=== PATIENT | female | born 1945 | race Caucasian/White ===

== ENCOUNTER 2018-10-28 21:39 | Inpatient (IN) | payer MEDICARE ==
[2018-10-28] MEDS ORDERED: Heparin 25,000 units/D5W 500 ML ONE (21:47)
[2018-10-28] MEDS ORDERED: Heparin 1,000 UNITS/ML VIAL ONE (21:47)
[2018-10-28 21:56] LABS: #Eosinphils 0.2 thou/uL (0.0-0.7); #Lymphocytes 2.3 thou/uL (1.20-3.40); #Monocytes 0.8 thou/uL (0.11-0.59); #Neutrophils 5.9 thou/uL (1.40-6.50); %Basophils 0.3 % (0.0-1.0); %Eosinophils 2.4 % (0.0-10.0); %Monocytes 8.3 % (0.0-10.0); Hemoglobin 13.6 g/dL (12.0-16.0); Mean Corpuscular HGB CONC 32.3 g/dL (32.0-36.0); Mean Corpuscular Hemoglobin 27.4 pg (27.0-31.0); Mean Corpuscular Volume 84.8 fL (78.0-98.0); Mean Platelet Volume 9.2 fL (7.4-10.4); Platelet Count 168 thou/uL (130-400); RBC Distribution Width 12.1 % (11.5-14.5); Red Blood Cell (RBC) Count 4.96 mill/uL (4.20-5.40); White Blood Cell (WBC) Count 9.2 thou/uL (4.8-10.8)
--- NOTE | 2018-10-28 21:59 | RAD ---
Portable frontal chest radiograph: 10/28/2018 COMPARISON: 02/10/2018 HISTORY: STEMI FINDINGS: Extensive fusion hardware again noted at the thoracolumbar junction. Mild interstitial prom inence and pulmonary hyperinflation. Stable heart and mediastinal contours. No focal consolidation or alveolar edema. Pression: No acute findings.
[2018-10-28] MEDS ORDERED: Midazolam HCl 2 mg/2 ml Vial ONE (22:10)
[2018-10-28 22:18] LABS: ALT (SGPT) 13 U/L (8-55); AST (SGOT) 23 U/L (5-34); Albumin 4.5 g/dL (3.4-4.8); Alkaline Phosphatase 84 U/L (40-150); Anion Gap 14 mmol/L (10-20); BUN (Urea Nitrogen) 18 mg/dL (9.8-20.1); Bilirubin, Total 0.4 mg/dL (0.2-1.2); Calc. Creatinine Clearance 0 mL/min (70-130); Calcium 10.1 mg/dL (7.8-10.44); Carbon Dioxide 22 mmol/L (23-31); Chloride 105 mmol/L (98-107); Estimated GFR-MDRD 55; Globulin 3.3 g/dL (2.4-3.5); Glucose 135 mg/dL (83-110); Potassium 4.2 mmol/L (3.5-5.1); Protein, Total 7.8 g/dL (6.0-8.3); Sodium 137 mmol/L (136-145)
[2018-10-28] MEDS ORDERED: Heparin 10,000 UNITS/1 ML VIAL ONE (22:19)
[2018-10-28] MEDS ORDERED: Heparin 10,000 UNITS/ 10 ML VIAL ONE (22:22)
[2018-10-28] MEDS ORDERED: Atropine Sulfate 1 mg/10 ml Syringe ONE (22:25)
[2018-10-28 22:48] LABS: CKMB 5.4 ng/mL (0-6.6)
[2018-10-28] MEDS ORDERED: Aggrastat 12.5 MG/250 ML 0 ML ONE (22:53)
[2018-10-28] MEDS ORDERED: Aggrastat 12.5 MG/250 ML 12.5 MG in Premix Bag 1 BAG IVPB SCH (23:54)
[2018-10-28] MEDS ORDERED: Morphine 4 MG/ML VIAL SLOW IVP PRN (23:54)
[2018-10-28] MEDS ORDERED: Nitroglycerin 0.4 MG TAB (25 Tab Bottle) SL PRN (23:54)
[2018-10-28] MEDS ORDERED: Morphine 2 MG/ML SYRINGE SLOW IVP PRN (23:57)
[2018-10-29] MEDS: Sodium Chloride 0.9% 1,000 ML IV SCH ×3 (00:08→17:39)
[2018-10-29 01:10] VITALS: BMI 32.2
--- NOTE | 2018-10-29 02:43 | HP ---
INDICATION FOR ADMISSION: A 73-year-old female who started experiencing chest pain, seen around 7:10 and has suffered an acute inferior myocardial infarction. HISTORY OF PRESENT ILLNESS: This very pleasant 73-year-old female who has had no previous cardiac history, but does have a history of lupus, started developing chest pain around 7:10 this evening. She thought she had some hunger. She ate some, but the pain did not get better, it continued to increase and she was brought to the emergency room. EKG shows acute inferior myocardial infarction. She continues to have chest pain 6-08/17. PAST MEDICAL HISTORY: Significant for lupus and she has had some pneumonia. She has had 3 back surgeries. She has had a hysterectomy. She has had recent eye surgery due to glaucoma. ALLERGIES: NONE. PRESENT MEDICATIONS: She only remembers that she is taking metoprolol. The remainder of the medicine will be brought by the later. In the emergency room, she was given heparin 4000 units and 2 aspirin. REVIEW OF SYSTEMS: She wears glasses. She has had dark stools recently, but her hemoglobin is stable. She has urinary tract infections. Otherwise, 12-point review of systems unremarkable. PHYSICAL EXAMINATION: GENERAL: Reveals a well-developed, well-nourished female, in no acute distress. VITAL SIGNS: Blood pressure 133/84, heart rate is 76. She is still uncomfortable. Respiratory rate is about 18. HEENT: Shows the head to be normocephalic and atraumatic. NECK: Carotid pulses are present. No bruits present. CHEST: Clear to auscultation. CARDIOVASCULAR: Reveals a regular rate and rhythm. She has normal S1, S2. I could not hear any significant murmurs, heaves, thrills, bruits, or rubs. ABDOMEN: Obesity. Positive bowel sounds are present. No organomegaly or masses noted. EXTREMITIES: Pulses are present. Extremities showed no clubbing, cyanosis, edema. NEUROLOGIC: She appears to be stable. IMAGING: EKG shows acute inferior myocardial infarction with ST-segment elevation with reciprocal changes in the anterior and lateral leads. DIAGNOSTIC DATA: Acute inferior myocardial infarction. The patient was taken to cardiac catholic priest emergently. I have explained the procedure and the risks to her to include bleeding, infection, possible myocardial infarction, CVA, renal insufficiency, allergic contrast reaction or the possibility of . She understands agrees to proceed. We will plan for cardiac catheterization on emergent basis. She understands and agrees. For her other medical problems, we will ask that the hospital service be involved in her care for her lupus as well as for glaucoma and occasional urinary tract infections. Job ID: [id number]
[2018-10-29 04:24] LABS: #Lymphocytes 1.6 thou/uL (1.20-3.40); #Monocytes 0.4 thou/uL (0.11-0.59); #Neutrophils 3.3 thou/uL (1.40-6.50); %Basophils 0.6 % (0.0-1.0); %Eosinophils 0.5 % (0.0-10.0); %Lymphocytes 30.5 % (21.0-51.0); %Monocytes 7.5 % (0.0-10.0); Hemoglobin 12.1 g/dL (12.0-16.0); Mean Corpuscular HGB CONC 32.7 g/dL (32.0-36.0); Mean Corpuscular Hemoglobin 28.3 pg (27.0-31.0); Mean Corpuscular Volume 86.4 fL (78.0-98.0); Platelet Count 105 thou/uL (130-400); Platelet Morphology Comment Appears Decreased; RBC Distribution Width 12.1 % (11.5-14.5); Red Blood Cell (RBC) Count 4.27 mill/uL (4.20-5.40); White Blood Cell (WBC) Count 5.4 thou/uL (4.8-10.8)
[2018-10-29 04:26] LABS: ALT (SGPT) 27 U/L (8-55); AST (SGOT) 142 U/L (5-34); Albumin 3.7 g/dL (3.4-4.8); Alkaline Phosphatase 67 U/L (40-150); Anion Gap 11 mmol/L (10-20); BUN (Urea Nitrogen) 14 mg/dL (9.8-20.1); Bilirubin, Total 0.5 mg/dL (0.2-1.2); Calc. Creatinine Clearance 100 mL/min (70-130); Calcium 9.3 mg/dL (7.8-10.44); Carbon Dioxide 20 mmol/L (23-31); Chloride 109 mmol/L (98-107); Estimated GFR-MDRD 79; Globulin 2.8 g/dL (2.4-3.5); Glucose 127 mg/dL (83-110); Protein, Total 6.5 g/dL (6.0-8.3); Sodium 136 mmol/L (136-145)
[2018-10-29] MEDS: TICAGRELOR 90 MG TABLET PO SCH ×2 (09:55→21:25)
[2018-10-29] MEDS: Aspirin Chewable 81 MG TAB PO SCH (09:55)
[2018-10-29] MEDS: Carvedilol 3.125 MG TAB PO SCH ×2 (09:55→21:25)
[2018-10-29] MEDS: Lisinopril 2.5 MG TAB PO SCH (09:55)
--- NOTE | 2018-10-29 10:01 | CON ---
DATE OF CONSULTATION: HISTORY OF PRESENT ILLNESS: Brenad Reynolds is a 73-year-old female, who normally seeks care at [facility], presented to the hospital with chest pain, heaviness, lasting about an hour with the left upper extremity radiation. Apparently, she took aspirin. She is a nonsmoker. Denies any previous history of coronary artery disease. She was taken to the mill laborer by Dr. Jimmy Yun. Two cardiac stents have been inserted. Please review her notes. The patient has never smoked, has had multiple episodes of pneumonia. She has a Ventolin inhaler, which she uses from time to time. 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 MEDICATIONS: 1. Glucophage 500. 2. Atarax. 3. Eyedrops. 4. Ditropan XL. 5. Gabapentin 600. 6. Cymbalta. PAST SURGICAL HISTORY: Back surgery, hysterectomy, eye surgery. SOCIAL HISTORY: Worked in the [employer]. REVIEW OF SYSTEMS: Otherwise 10-point negative. PHYSICAL EXAMINATION: VITAL SIGNS: Blood pressure 139/78, pulse 70, respirations 18, saturations 96%. CHEST: Decreased breath sounds without any wheezing, but has anterior rhonchi. CARDIAC: Normal S1 and S2. ABDOMEN: Negative mass. LABORATORY DATA: Electrolytes are normal. White count unremarkable. Troponin is elevated. IMAGING STUDIES: Chest x-ray is normal. IMPRESSION: 1. Acute coronary syndrome, status post emergency cardiac cath with multiple stents inserted. 2. Frequent bronchitis. PLAN: 1. Continue cardiac care. Added some Dulera to her present treatment. She may have some reactive airway disease. 2. Pulmonary will follow in the ICU . Consultation note, 70 minutes, 50% direct patient care. Job ID: [id number]
[2018-10-29] MEDS ORDERED: Dextrose 50% Abboject 50 ML SYRINGE SLOW IVP PRN (12:51)
[2018-10-29] MEDS ORDERED: Insulin Regular 300 UNITS/3 ML VIAL SC PRN ×2 (12:51)
[2018-10-29] MEDS ORDERED: Dextrose 5% in Water 1,000 ML IV PRN (12:51)
--- NOTE | 2018-10-29 17:03 | PDOC.HOSPP ---
- Subjective Encounter Date: 10/29/18 Encounter Time: 17:01 Subjective: Patient seen and examined for med mngt. No CP. Follows Dr Pearlta at [facility]. No new complaints. - Objective Vital Signs & Weight: Vital Signs (12 hours) Temp Pulse BP Pulse Ox 10/29/18 16:00 98.2 F 10/29/18 09:55 74 129/66 10/29/18 08:00 97.9 F 100 Weight Weight 205 lb 14.588 oz Most Recent Monitor Data Heart Rate from ECG 91 NIBP 157/75 NIBP BP-Mean 102 Respiration from ECG 26 SpO2 100 I&O: 10/28/18 10/29/18 10/30/18 06:59 06:59 06:59 Intake Total 877 600 Output Total 1100 Balance 877 -500 Result Diagrams: 10/29/18 03:42 10/29/18 03:42 Additional Labs: Accuchecks 10/29/18 16:16 POC Glucose 89 EKG Reviewed by me: Yes (Tele SR) Hospitalist ROS - Review of Systems Respiratory: denies: cough, dry, shortness of breath, hemoptysis, SOB with excertion, pleuritic pain, sputum, wheezing, other Cardiovascular: denies: chest pain, palpitations, orthopnea, paroxysmal noc. dyspnea, edema, light headedness, other - Medication Medications: Active Medications Generic Name Dose Route Start Last Admin Trade Name Freq PRN Reason Stop Dose Admin Aspirin 81 mg 10/29/18 09:00 10/29/18 09:55 Aspirin Chewable PO 81 mg DAILY SYED Administration Carvedilol 3.125 mg 10/29/18 09:00 10/29/18 09:55 Coreg PO 3.125 mg BID SYED Administration Sodium Chloride 1,000 mls @ 100 mls/hr 10/28/18 23:54 10/29/18 09:58 Normal Saline 0.9% IV 1,000 mls .Q10H SYED Administration Tirofiban/Sodium Chloride 12.5 250 mls @ 0 mls/hr 10/28/18 23:54 10/29/18 10: 10 mg/ Device IVPB 250 mls INF SYED Administration As Directed Lisinopril 2.5 mg 10/29/18 09:00 10/29/18 09:55 Zestril PO 2.5 mg DAILY SYED Administration Morphine Sulfate 2 mg 10/28/18 23:57 10/29/18 08:14 Morphine SLOW IVP 2 mg Q4H PRN Administration CHEST PAIN (4-6) Sodium Chloride 10 ml 10/29/18 09:00 10/29/18 09:56 Flush - Normal Saline IVF 10 ml Q12HR SYED Administration Ticagrelor 90 mg 10/29/18 09:00 10/29/18 09:55 Brilinta PO 90 mg BID SYED Administration - Exam General Appearance: NAD Heart: RRR, no rubs Respiratory: CTAB, no rales Gastrointestinal: soft, non-tender, normal bowel sounds Extremities: no edema Hosp A/P (1) DM2 (diabetes mellitus, type 2) Status: Chronic Qualifiers: Chronic kidney disease stage: stage 2 (mild) (2) HTN (hypertension) Code(s): I10 - ESSENTIAL (PRIMARY) HYPERTENSION Status: Chronic (3) HLD (hyperlipidemia) Code(s): E78.5 - HYPERLIPIDEMIA, UNSPECIFIED Status: Chronic (4) Obesity (BMI 30.0-34.9) Code(s): E66.9 - OBESITY, UNSPECIFIED Status: Chronic (5) Thrombocytopenia Code(s): D69.6 - THROMBOCYTOPENIA, UNSPECIFIED Status: Acute (6) SLE (systemic lupus erythematosus related syndrome) Code(s): M32.9 - SYSTEMIC LUPUS ERYTHEMATOSUS, UNSPECIFIED Status: Chronic - Plan plan discussed w/ family Hold Metformin Start mild sliding scale Resume Cymbalta/Gabapentin Cont Macrobid for UTI suppression Full code. DPOA - family
[2018-10-29 19:27] LABS: Critical Call Chem Troponin I RESULT DECREASING
[2018-10-29 19:46] LABS: CKMB 74.4 ng/mL (0-6.6); Critical Call CKMB RESULT DECREASING
[2018-10-29] MEDS: DULoxetine 60 MG CAP PO SCH (21:25)
[2018-10-29] MEDS: Gabapentin 300 MG CAP PO SCH (21:25)
[2018-10-29] MEDS: Atorvastatin Calcium 20 MG TAB PO SCH (21:25)
[2018-10-29] MEDS: Mometasone/Formoterol 120 PUFF INHALER INH SCH (21:27)
[2018-10-30 05:12] LABS: #Eosinphils 0.2 thou/uL (0.0-0.7); #Lymphocytes 1.5 thou/uL (1.20-3.40); #Monocytes 0.6 thou/uL (0.11-0.59); #Neutrophils 2.8 thou/uL (1.40-6.50); %Basophils 0.3 % (0.0-1.0); %Eosinophils 3.7 % (0.0-10.0); %Lymphocytes 29.8 % (21.0-51.0); %Monocytes 12.2 % (0.0-10.0); %Neutrophils 53.9 % (42.0-75.0); Hemoglobin 12.5 g/dL (12.0-16.0); Mean Corpuscular HGB CONC 32.3 g/dL (32.0-36.0); Mean Corpuscular Hemoglobin 27.9 pg (27.0-31.0); Mean Corpuscular Volume 86.6 fL (78.0-98.0); Platelet Count 102 thou/uL (130-400); RBC Distribution Width 12.1 % (11.5-14.5); Red Blood Cell (RBC) Count 4.47 mill/uL (4.20-5.40); White Blood Cell (WBC) Count 5.1 thou/uL (4.8-10.8)
[2018-10-30 05:34] LABS: Albumin 3.7 g/dL (3.4-4.8); Anion Gap 12 mmol/L (10-20); BUN (Urea Nitrogen) 7 mg/dL (9.8-20.1); BUN/Creatinine Ratio 10.14; Calc. Creatinine Clearance 105 mL/min (70-130); Calcium 9.2 mg/dL (7.8-10.44); Carbon Dioxide 24 mmol/L (23-31); Chloride 111 mmol/L (98-107); Estimated GFR-MDRD 83; Glucose 112 mg/dL (83-110); Magnesium 1.8 mg/dL (1.6-2.6); Phosphorus 3.3 mg/dL (2.3-4.7); Potassium 4.2 mmol/L (3.5-5.1); Sodium 143 mmol/L (136-145)
[2018-10-30 05:38] LABS: Critical Call Chem Troponin I RESULT DECREASING; Troponin I 20.559 ng/mL (< 0.028)
[2018-10-30] MEDS: Mometasone/Formoterol 120 PUFF INHALER INH SCH ×2 (07:45→18:38)
[2018-10-30] MEDS ORDERED: Magnesium Sulfate 2 GM in Sodium Chloride 0.9% 100 ML IVPB SCH (08:45)
[2018-10-30] MEDS ORDERED: Magnesium 2 GM/50 ML 2 GM in Premix Bag 1 BAG IVPB SCH (09:15)
[2018-10-30] MEDS: Sodium Chloride 0.9% 1,000 ML IV SCH ×3 (09:21→21:21)
[2018-10-30] MEDS: Oxybutynin ER 5 MG TAB PO SCH (09:23)
[2018-10-30] MEDS: Nitrofurantoin Monohyd/M-Cryst 100 MG CAP PO SCH (09:23)
[2018-10-30] MEDS: TICAGRELOR 90 MG TABLET PO SCH ×2 (09:24→20:50)
[2018-10-30] MEDS: DULoxetine 60 MG CAP PO SCH ×2 (09:24→20:49)
[2018-10-30] MEDS: Gabapentin 300 MG CAP PO SCH ×2 (09:25→20:50)
[2018-10-30] MEDS: Lisinopril 2.5 MG TAB PO SCH (09:25)
[2018-10-30] MEDS: Aspirin Chewable 81 MG TAB PO SCH (09:26)
[2018-10-30] MEDS: Carvedilol 3.125 MG TAB PO SCH (09:26)
[2018-10-30] MEDS ORDERED: Polyethylene Glycol 3350 17 GM Packet PO SCH (10:30)
--- NOTE | 2018-10-30 10:50 | PRG ---
DATE OF SERVICE: 10/30/2018 SUBJECTIVE: This morning, she is awake, alert, and responsive. Denies any pain or shortness of breath. OBJECTIVE: VITAL SIGNS: Blood pressure 140/72, pulse 80, respiratory rate 18, saturations are 96%. CHEST: No wheezing, crackles. CARDIAC: Normal S1, S2. No gallops. ABDOMEN: No masses. LABORATORY DATA: Lytes are normal. White count is normal. Troponin is elevated. IMPRESSION: 1. Diabetes. 2. Acute coronary syndrome, status post catheterization with multiple stents. 3. Frequent bronchitis. PLAN: Continue present supportive care. Valerie. Pulmonary will follow while in the ICU. Job ID: [id number]
[2018-10-30] MEDS ORDERED: Carvedilol 3.125 MG TAB PO SCH (11:00)
--- NOTE | 2018-10-30 16:45 | PDOC.HOSPP ---
- Subjective Encounter Date: 10/30/18 Encounter Time: 09:00 Subjective: Patient seen and examined for med mngt. No CP or SOB. No new complaints. No overnight events - Objective Vital Signs & Weight: Vital Signs (12 hours) Temp Pulse Pulse Pulse Resp BP BP 10/30/18 16:00 97.6 F 10/30/18 12:00 97.7 F 10/30/18 11:24 89 101 H 145/72 H 10/30/18 09:25 99 145/72 H 10/30/18 08:00 98.1 F 10/30/18 07:45 99 22 H BP Pulse Ox Pulse Ox Pulse Ox 10/30/18 16:00 100 10/30/18 12:00 10/30/18 11:24 156/85 H 100 100 10/30/18 09:25 10/30/18 08:00 98 10/30/18 07:45 95 Weight Weight 207 lb 10.807 oz Most Recent Monitor Data Heart Rate from ECG 67 NIBP 130/76 NIBP BP-Mean 94 Respiration from ECG 33 SpO2 100 I&O: 10/29/18 10/30/18 10/31/18 06:59 06:59 06:59 Intake Total 877 2837 740 Output Total 3350 501 Balance 877 -513 239 Result Diagrams: 10/30/18 05:00 10/30/18 05:00 Additional Labs: Accuchecks 10/30/18 10/29/18 11:31 21:19 POC Glucose 100 121 H EKG Reviewed by me: Yes (Tele SR) Hospitalist ROS - Review of Systems Respiratory: denies: cough, dry, shortness of breath, hemoptysis, SOB with excertion, pleuritic pain, sputum, wheezing, other Cardiovascular: denies: chest pain, palpitations, orthopnea, paroxysmal noc. dyspnea, edema, light headedness, other Gastrointestinal: reports: constipation. denies: nausea, vomiting, abdominal pain, diarrhea, melena, hematochezia, other - Medication Medications: Active Medications Generic Name Dose Route Start Last Admin Trade Name Freq PRN Reason Stop Dose Admin Aspirin 81 mg 10/29/18 09:00 10/30/18 09:26 Aspirin Chewable PO 81 mg DAILY SYED Administration Atorvastatin Calcium 20 mg 10/29/18 21:00 10/29/18 21:25 Lipitor PO 20 mg HS SYED Administration Duloxetine HCl 60 mg 10/29/18 21:00 10/30/18 09:24 Cymbalta PO 60 mg BID SYED Administration Gabapentin 600 mg 10/29/18 21:00 10/30/18 09:25 Neurontin PO 600 mg BID SYED Administration Sodium Chloride 1,000 mls @ 100 mls/hr 10/28/18 23:54 10/30/18 09:21 Normal Saline 0.9% IV Not Given .Q10H SYED Tirofiban/Sodium Chloride 12.5 250 mls @ 0 mls/hr 10/28/18 23:54 10/29/18 10: 10 mg/ Device IVPB 250 mls INF SYED Administration As Directed Lisinopril 2.5 mg 10/29/18 09:00 10/30/18 09:25 Zestril PO 2.5 mg DAILY SYED Administration Mometasone Furoate/Formoterol Fumar 2 puff 10/29/18 18:30 10/30/18 07:45 Dulera 200 Mcg/5 Mcg Inhaler INH 2 puff BID-RT SYED Administration Morphine Sulfate 2 mg 10/28/18 23:57 10/29/18 08:14 Morphine SLOW IVP 2 mg Q4H PRN Administration CHEST PAIN (4-6) Nitrofurantoin Macrocrystals 100 mg 10/30/18 09:00 10/30/18 09:23 Macrobid PO 100 mg DAILY SYED Administration Oxybutynin Chloride 10 mg 10/30/18 09:00 10/30/18 09:23 Ditropan Xl PO 10 mg DAILY SYED Administration Sodium Chloride 10 ml 10/29/18 09:00 10/30/18 09:24 Flush - Normal Saline IVF 10 ml Q12HR SYED Administration Ticagrelor 90 mg 10/29/18 09:00 10/30/18 09:24 Brilinta PO 90 mg BID SYED Administration - Exam General Appearance: NAD Heart: RRR, no rubs Respiratory: CTAB, no rales, no ronchi Gastrointestinal: soft, non-tender, normal bowel sounds Extremities: no edema Hosp A/P (1) DM2 (diabetes mellitus, type 2) Status: Chronic Qualifiers: Chronic kidney disease stage: stage 2 (mild) (2) HTN (hypertension) Code(s): I10 - ESSENTIAL (PRIMARY) HYPERTENSION Status: Chronic (3) HLD (hyperlipidemia) Code(s): E78.5 - HYPERLIPIDEMIA, UNSPECIFIED Status: Chronic (4) Obesity (BMI 30.0-34.9) Code(s): E66.9 - OBESITY, UNSPECIFIED Status: Chronic (5) Thrombocytopenia Code(s): D69.6 - THROMBOCYTOPENIA, UNSPECIFIED Status: Acute (6) SLE (systemic lupus erythematosus related syndrome) Code(s): M32.9 - SYSTEMIC LUPUS ERYTHEMATOSUS, UNSPECIFIED Status: Chronic - Plan DVT proph w/SCDs Metformin on hold Cont sliding scale Cont ASA/BB/StatinsCymbalta/Gabapentin Cont Macrobid for chronic UTI suppression
[2018-10-30] MEDS ORDERED: diphenhydrAMINE 25 MG CAP PO PRN (18:52)
[2018-10-30] MEDS: Senokot S 8.6-50 MG TAB PO SCH (20:50)
[2018-10-30] MEDS: Carvedilol 6.25 MG TAB PO SCH (20:50)
[2018-10-30] MEDS: Atorvastatin Calcium 20 MG TAB PO SCH (20:50)
[2018-10-31] MEDS: Mometasone/Formoterol 120 PUFF INHALER INH SCH ×2 (06:42→18:19)
[2018-10-31] MEDS: DULoxetine 60 MG CAP PO SCH ×2 (08:18→20:22)
[2018-10-31] MEDS: Lisinopril 2.5 MG TAB PO SCH (08:18)
[2018-10-31] MEDS: Polyethylene Glycol 3350 17 GM Packet PO SCH (08:18)
[2018-10-31] MEDS: Oxybutynin ER 5 MG TAB PO SCH (08:18)
[2018-10-31] MEDS: Senokot S 8.6-50 MG TAB PO SCH ×2 (08:19→20:22)
[2018-10-31] MEDS: Nitrofurantoin Monohyd/M-Cryst 100 MG CAP PO SCH (08:19)
[2018-10-31] MEDS: Carvedilol 6.25 MG TAB PO SCH ×2 (08:19→20:21)
[2018-10-31] MEDS: Aspirin Chewable 81 MG TAB PO SCH (08:19)
[2018-10-31] MEDS: Gabapentin 300 MG CAP PO SCH ×2 (08:19→20:22)
[2018-10-31] MEDS: TICAGRELOR 90 MG TABLET PO SCH ×2 (08:20→20:23)
[2018-10-31] MEDS ORDERED: Furosemide 20 MG/2 ML VIAL SLOW IVP SCH (09:30)
--- NOTE | 2018-10-31 09:32 | PRG ---
DATE OF SERVICE: 10/31/2018 SUBJECTIVE: She was having some difficulty breathing last night, not coughing or wheezing. I's and O's are slightly negative. OBJECTIVE: VITAL SIGNS: Saturations are , blood pressure 134/84, respiratory rate 18, pulse 80. CHEST: Bilateral crackles. CARDIAC: Normal S1 and S2. No gallops. ABDOMEN: No masses. IMPRESSION AND PLAN: Status post emergency cardiac catheterization, diabetes, chronic cough, diastolic dysfunction. A dose of diuretics have been initiated. Otherwise supportive care. Disposition as per Cardiology. We will follow. Job ID: [id number]
[2018-10-31] MEDS: Sodium Chloride 0.9% 1,000 ML IV SCH ×2 (09:41→23:40)
--- NOTE | 2018-10-31 11:19 | PDOC.CPN ---
- Subjective Date: 10/31/18 Time: 11:20 Interval history: The pt seen and examined. No overnight events. No cardiac complaints. She had the episode of SOB last night, which improved with Lasix. - Objective Allergies/Adverse Reactions: Allergies Allergy/AdvReac Type Severity Reaction Status Date / Time No Known Drug Allergies Allergy Verified 10/29/18 05:55 Visit Medications: Current Medications Aspirin (Aspirin Chewable) 81 mg PO DAILY [facility] Last Admin: 10/31/18 08:19 Dose: 81 mg Atorvastatin Calcium (Lipitor) 20 mg PO HS [facility] Last Admin: 10/30/18 20:50 Dose: 20 mg Carvedilol (Coreg) 6.25 mg PO BID [facility] Last Admin: 10/31/18 08:19 Dose: 6.25 mg Dextrose/Water (Dextrose 50%) 25 gm SLOW IVP PRN PRN PRN Reason: Hypoglycemia Diphenhydramine HCl (Benadryl) 25 mg PO HSPRN PRN PRN Reason: Insomnia Last Admin: 10/30/18 20:49 Dose: 25 mg Duloxetine HCl (Cymbalta) 60 mg PO BID [facility] Last Admin: 10/31/18 08:18 Dose: 60 mg Furosemide (Lasix) 20 mg SLOW IVP NOW [facility] Stop: 10/31/18 12:00 Last Admin: 10/31/18 10:03 Dose: 20 mg Furosemide (Lasix) 40 mg PO DAILY-[facility] Gabapentin (Neurontin) 600 mg PO BID [facility] Last Admin: 10/31/18 08:19 Dose: 600 mg Glucagon (Glucagon) 1 mg IM PRN PRN PRN Reason: Hypoglycemia Sodium Chloride (Normal Saline 0.9%) 1,000 mls @ 100 mls/hr IV .Q10H [facility] Last Admin: 10/31/18 09:41 Dose: Not Given Dextrose/Water (D5w) 1,000 mls @ 0 mls/hr IV .Q0M PRN PRN Reason: Hypoglycemia Insulin Human Regular (Humulin R) 0 units SC .MILD SLIDING SCALE PRN PRN Reason: Mild Correctional Scale Insulin Human Regular (Humulin R) 0 units SC .BEDTIME SLIDING SC PRN PRN Reason: Bedtime Correctional Scale Lisinopril (Zestril) 2.5 mg PO DAILY [facility] Last Admin: 10/31/18 08:18 Dose: 2.5 mg Mometasone Furoate/Formoterol Fumar (Dulera 200 Mcg/5 Mcg Inhaler) 2 puff INH BID-RT [facility] Last Admin: 10/31/18 06:42 Dose: 2 puff Morphine Sulfate (Morphine) 4 mg SLOW IVP Q4H PRN PRN Reason: Chest Pain (7-10) Morphine Sulfate (Morphine) 2 mg SLOW IVP Q4H PRN PRN Reason: CHEST PAIN (4-6) Last Admin: 10/29/18 08:14 Dose: 2 mg Nitrofurantoin Macrocrystals (Macrobid) 100 mg PO DAILY [facility] Last Admin: 10/31/18 08:19 Dose: 100 mg Nitroglycerin (Nitrostat) 0.4 mg SL Q5MIN PRN PRN Reason: Chest Pain Oxybutynin Chloride (Ditropan Xl) 10 mg PO DAILY [facility] Last Admin: 10/31/18 08:18 Dose: 10 mg Polyethylene Glycol (Miralax) 17 gm PO DAILY [facility] Last Admin: 10/31/18 08:18 Dose: 17 gm Senna/Docusate Sodium (Senokot S) 2 tab PO BID [facility] Last Admin: 10/31/18 08:19 Dose: 2 tab Sodium Chloride (Flush - Normal Saline) 10 ml IVF PRN PRN PRN Reason: Saline Flush Last Admin: 10/31/18 10:03 Dose: 10 ml Sodium Chloride (Flush - Normal Saline) 10 ml IVF Q12HR [facility] Last Admin: 10/31/18 08:20 Dose: 10 ml Ticagrelor (Brilinta) 90 mg PO BID [facility] Last Admin: 10/31/18 08:20 Dose: 90 mg Vital Signs & Weight: Vital Signs Temp Pulse Pulse Pulse Resp BP BP 10/31/18 09:41 83 75 129/70 97/77 10/31/18 07:17 10/31/18 07:00 98.5 F 10/31/18 06:42 72 17 10/31/18 04:00 98.1 F 10/31/18 00:00 98.0 F Pulse Ox Pulse Ox Pulse Ox 10/31/18 09:41 98 100 10/31/18 07:17 99 10/31/18 07:00 10/31/18 06:42 100 10/31/18 04:00 10/31/18 00:00 Weight 207 lb 7.28 oz - Labs Result Diagrams: 10/30/18 05:00 10/30/18 05:00 Troponin/CKMB CK-MB (CK-2) 74.4 ng/mL (0-6.6) H* 10/29/18 18:49 Troponin I 20.559 ng/mL (< 0.028) H* 10/30/18 05:00 - Assessment/Plan Assessment/Plan: 1. CAD with s/p BMS in RCA with 90% stenosis in porx LAD adn 50% in OM on 2018 - Stable with Coreg, ROSIE, Lipitor, Brilinta, ASA; Possible CABG? 2. HTN - 3. HLD - 4. DM type 2 - 5. Thrombocytopenia 6. SLE 7. Chronic UTI - On Macrobid for UTI suppression MAR reviewed * Echo on 10/29/2018 with EF 45-50%, inferior hypokinesis, grade I dd, mild MR, AR, TR, and LA Pt. seen and eval. by me. I agree with the A/P by the FURNITURE UPHOLSTERER APPRENTICE. She denies complaints. Sleeping poorly. Cath films reviewd with another tyre retreader. Agree she may be best served by CABG to the LAD and possible distal RCA. Will ask CT surgeons for consult. NICA
[2018-10-31] MEDS: Atorvastatin Calcium 20 MG TAB PO SCH (20:21)
--- NOTE | 2018-10-31 22:20 | CON ---
DATE OF CONSULTATION: 10/31/2018 REQUESTING PHYSICIAN: Alyson Yun MD CHIEF COMPLAINT: Epigastric and chest burning pain. HISTORY OF PRESENT ILLNESS: The patient is a 73-year-old woman with what she describes as lupus, that is currently in remission. This past Wednesday, the , she began having some burning discomfort in her epigastrium and lower chest that she ascribed to indigestion. It persisted and worsened, and was associated with a vague discomfort and paresthesia that initially started off just going into her left shoulder and upper arm, but eventually went all the way to her fingertips. When she presented to the emergency room, she was found to have ST elevation in inferior leads, and she was taken emergently to the brush clearing laborer where she underwent bare-metal stenting to open and acutely occluded PDA. Her postinfarction course has been unremarkable. In retrospect, she has been having a little bit of dyspnea on exertion for 2 or 3 months, and she has been having same sort of vague discomfort in her arm that she had associated with this episode of chest discomfort for about the same period of time. She has not been able to identify any particular pattern to precipitation of those symptoms and says that she has even had some of that arm discomfort at rest. PAST MEDICAL HISTORY: Significant for lupus, but she has been on no medications for about 2 years. She reports having had 2 episodes of pneumonia in the last year or 2. She has undergone 3 back procedures with the most recent being a few years ago and left her with some residual left leg weakness and a footdrop on the left side. She has glaucoma, and about 3 months ago, she underwent surgery for glaucoma on her right eye, and she describes herself as having Raynaud phenomenon. She also has diabetes. HOME MEDICATIONS: 1. Metformin 500 mg in the morning. 2. Ditropan XL 10 mg a day. 3. Duloxetine (Cymbalta) 60 mg b.i.d. 4. Atarax 10 mg b.i.d. p.r.n. 5. Timolol 0.5% ophthalmic solution one drop to each eye at bedtime. 6. Prednisolone acetate 1% one drop to each eye b.i.d. 7. Dorzolamide 2% eyedrops one drop to each eye at bedtime. 8. Lumigan eyedrops one drop to each eye at bedtime. 9. Neurontin 600 mg p.o. b.i.d. 10. Nitrofurantoin 100 mg a day. ALLERGIES: SHE DENIES ANY MEDICAL ALLERGIES. SOCIAL HISTORY: She does not smoke. FAMILY HISTORY: Both of her parents manifest coronary disease in their 70s. REVIEW OF SYSTEMS: Negative for any transient eye, speech, facial or extremity symptoms consistent with TIAs. Negative for any claudication symptoms. She does have limited mobility and walks with the use of a seated walker. She denies any orthopnea or deep tendon edema, but does report recent dyspnea on exertion. Prior to that, she has not had much in the way of shortness of breath outside of that associated with her episodes of pneumonia. She reports frequent urinary tract infections. PHYSICAL EXAMINATION: GENERAL: She is in no distress. VITAL SIGNS: Height is 5 feet 7 inches, weight is 207.5 pounds, heart rate 88, blood pressure of 120/72, and room air O2 sats are 98%. Her temperature is 97.6. Her heart rate was 75 and blood pressure was 148/70 on presentation in the emergency room. HEENT: She has no xanthelasma. NECK: No JVD. No carotid bruits. CHEST: Clear to auscultation. HEART: She has regular rate and rhythm without murmur or gallop. ABDOMEN: Soft and nontender. MUSCULOSKELETAL: She has palpable radial, femoral, and dorsalis pedis pulses bilaterally. All of her fingertips have bluish cast to them. The palms are pink. She has no cyanosis of her toes, and no swelling of her ankles or feet. She has stiffened left ankle with decreased strength on plantar flexion. Upper extremity strength and right lower extremity strength are normal. She has no obvious varicosities. DIAGNOSTIC DATA: Her EKG showed ST elevation in leads II, III, and aVF. Her chest x-ray shows lower thoracic hardware, slight prominence of pulmonary markings, and borderline cardiomegaly. Her echocardiogram showed an LVEF of 45% to 50% with inferior hypokinesis with mild aortic regurgitation, otherwise normal aortic valve, left atrium 3.83 cm. Her cardiac catheterization shows diffuse luminal irregularity in the right coronary system with the early pictures suggesting a proximal lesion that might be on the order of 50% to 60% and another mid lesion of similar severity. She has an occluded PDA, that was acutely opened with a bare-metal stent. On the ending pictures, the degree of stenosis in the right coronary did not seem as great, more on the order of 30% to 40%. She has some very minimal luminal irregularity in the circumflex system, which gives rise to a large bifurcated OM. She has an 80% to 90% lesion in her LAD just beyond a large first septal bomb squad officer and that LAD wraps around the apex. LVEF is around 40% with inferior apical hypokinesis or perhaps even akinesis. LABORATORY DATA: White count of 9.2, hemoglobin 13.6, hematocrit 42.0, and platelets 168,000. Her electrolytes were normal. Her glucose was 135, BUN 18, and creatinine 0.99. On presentation, her LFTs were normal. Her albumin was 4.5. Her troponin was 0.838 at presentation, the night of the and the following morning at 11 is 57.277 dropping to 29.249 that evening. Her BUN and creatinine have remained normal and as of yesterday morning were 7 and 0.69 with an estimated GFR of 83. IMPRESSION AND RECOMMENDATIONS: The patient has an uncomplicated postinfarction course after use of bare-metal stenting to abort an inferior ST elevation ME. Coreg at 6.25 mg b.i.d., lisinopril at 2.5 mg a day, Lipitor 20 mg at bedtime, baby aspirin, and Brilinta at 90 mg b.i.d. have been added to her regimen. Presuming that she continues with this smooth postinfarction course, she would appear to be a good candidate for bypass of her diseased LAD in about a month or 6 weeks off Brilinta. I will plan on seeing her in the office in about a month to see how she is doing with the plan being to stop her Brilinta at that time and do her bypass surgery a week or so after that. Job ID: [id number]
--- NOTE | 2018-10-31 23:43 | PDOC.HOSPP ---
- Subjective Encounter Date: 10/31/18 Encounter Time: 07:45 Subjective: Patient seen and examined for med mngt. No CP or SOB. No new complaints. No overnight events - Objective Vital Signs & Weight: Vital Signs (12 hours) Temp Pulse Resp BP Pulse Ox 10/31/18 20:21 105/61 10/31/18 19:35 98 10/31/18 19:00 98.7 F 10/31/18 18:19 66 19 97 10/31/18 16:00 97.6 F 10/31/18 12:00 98.0 F 98 Weight Weight 207 lb 7.28 oz Most Recent Monitor Data Heart Rate from ECG 63 NIBP 157/73 NIBP BP-Mean 101 Respiration from ECG 16 SpO2 99 I&O: 10/30/18 10/31/18 11/01/18 06:59 06:59 06:59 Intake Total 2837 1460 1550 Output Total 3350 1701 1090 Balance -130 -078 953 Result Diagrams: 10/30/18 05:00 10/30/18 05:00 Additional Labs: Accuchecks 10/31/18 10/31/18 10/31/18 21:31 17:37 11:34 POC Glucose 88 103 105 10/31/18 05:46 POC Glucose 110 EKG Reviewed by me: Yes (Tele SR) Hospitalist ROS - Review of Systems Cardiovascular: denies: chest pain, palpitations, orthopnea, paroxysmal noc. dyspnea, edema, light headedness, other Gastrointestinal: denies: nausea, vomiting, abdominal pain, diarrhea, constipation, melena, hematochezia, other - Medication Medications: Active Medications Generic Name Dose Route Start Last Admin Trade Name Freq PRN Reason Stop Dose Admin Aspirin 81 mg 10/29/18 09:00 10/31/18 08:19 Aspirin Chewable PO 81 mg DAILY SYED Administration Atorvastatin Calcium 20 mg 10/29/18 21:00 10/31/18 20:21 Lipitor PO 20 mg HS SYED Administration Carvedilol 6.25 mg 10/30/18 21:00 10/31/18 20:21 Coreg PO 6.25 mg BID SYED Administration Diphenhydramine HCl 25 mg 10/30/18 18:52 10/30/18 20:49 Benadryl PO 25 mg HSPRN PRN Administration Insomnia Duloxetine HCl 60 mg 10/29/18 21:00 10/31/18 20:22 Cymbalta PO 60 mg BID SYED Administration Gabapentin 600 mg 10/29/18 21:00 10/31/18 20:22 Neurontin PO 600 mg BID SYED Administration Sodium Chloride 1,000 mls @ 100 mls/hr 10/28/18 23:54 10/31/18 23:40 Normal Saline 0.9% IV Not Given .Q10H SYED Lisinopril 2.5 mg 10/29/18 09:00 10/31/18 08:18 Zestril PO 2.5 mg DAILY SYED Administration Mometasone Furoate/Formoterol Fumar 2 puff 10/29/18 18:30 10/31/18 18:19 Dulera 200 Mcg/5 Mcg Inhaler INH 2 puff BID-RT SYED Administration Morphine Sulfate 2 mg 10/28/18 23:57 10/29/18 08:14 Morphine SLOW IVP 2 mg Q4H PRN Administration CHEST PAIN (4-6) Nitrofurantoin Macrocrystals 100 mg 10/30/18 09:00 10/31/18 08:19 Macrobid PO 100 mg DAILY SYED Administration Oxybutynin Chloride 10 mg 10/30/18 09:00 10/31/18 08:18 Ditropan Xl PO 10 mg DAILY SYED Administration Polyethylene Glycol 17 gm 10/31/18 09:00 10/31/18 08:18 Miralax PO 17 gm DAILY SYED Administration Senna/Docusate Sodium 2 tab 10/30/18 21:00 10/31/18 20:22 Senokot S PO 2 tab BID SYED Administration Sodium Chloride 10 ml 10/28/18 23:54 10/31/18 10:03 Flush - Normal Saline IVF 10 ml PRN PRN Administration Saline Flush Sodium Chloride 10 ml 10/29/18 09:00 10/31/18 20:23 Flush - Normal Saline IVF 10 ml Q12HR SYED Administration Ticagrelor 90 mg 10/29/18 09:00 10/31/18 20:23 Brilinta PO 90 mg BID SYED Administration - Exam General Appearance: NAD Neck: supple, no JVD Heart: RRR, no gallops Respiratory: CTAB, no rales, no ronchi Gastrointestinal: soft, non-tender, normal bowel sounds Extremities: no edema Hosp A/P (1) DM2 (diabetes mellitus, type 2) Status: Chronic Qualifiers: Chronic kidney disease stage: stage 2 (mild) (2) HTN (hypertension) Code(s): I10 - ESSENTIAL (PRIMARY) HYPERTENSION Status: Chronic (3) HLD (hyperlipidemia) Code(s): E78.5 - HYPERLIPIDEMIA, UNSPECIFIED Status: Chronic (4) Obesity (BMI 30.0-34.9) Code(s): E66.9 - OBESITY, UNSPECIFIED Status: Chronic (5) Thrombocytopenia Code(s): D69.6 - THROMBOCYTOPENIA, UNSPECIFIED Status: Acute (6) SLE (systemic lupus erythematosus related syndrome) Code(s): M32.9 - SYSTEMIC LUPUS ERYTHEMATOSUS, UNSPECIFIED Status: Chronic - Plan DVT proph w/SCDs Resume Metformin at dc Cont sliding scale Cont ASA/BB/Statins Cont Cymbalta/Gabapentin Cont Macrobid for chronic UTI
[2018-11-01 04:47] LABS: Hemoglobin 13.1 g/dL (12.0-16.0); Platelet Count 121 thou/uL (130-400)
[2018-11-01 05:14] LABS: Anion Gap 11 mmol/L (10-20); BUN (Urea Nitrogen) 15 mg/dL (9.8-20.1); Calc. Creatinine Clearance 95 mL/min (70-130); Calcium 9.6 mg/dL (7.8-10.44); Carbon Dioxide 26 mmol/L (23-31); Chloride 107 mmol/L (98-107); Estimated GFR-MDRD 74; Glucose 109 mg/dL (83-110); Sodium 140 mmol/L (136-145)
--- NOTE | 2018-11-01 10:09 | PRG ---
DATE OF SERVICE: 11/01/2018 SUBJECTIVE: This morning, she is better, less cough, less shortness of breath. OBJECTIVE: VITAL SIGNS: Blood pressure 149/69, pulse 70, respiratory rate 18. I's and O's are good. CHEST: Minimal crackles. No wheezing. CARDIAC: Normal S1, S2. . ASSESSMENT AND PLAN: Chronic bronchitis, congestive heart failure, carotid disease, diabetes. Disposition as per Cardiology. Continue present neb treatments. Job ID: [id number]
--- NOTE | 2018-11-01 10:11 | PDOC.CPN ---
- Subjective Date: 11/01/18 Time: 10:11 Interval history: The pt seen and examined. No overnight events. No cardiac complaints. She had 1st BM this AM; however, she needed assist to clean herself. - Objective Allergies/Adverse Reactions: Allergies Allergy/AdvReac Type Severity Reaction Status Date / Time No Known Drug Allergies Allergy Verified 10/29/18 05:55 Visit Medications: Current Medications Aspirin (Aspirin Chewable) 81 mg PO DAILY [facility] Last Admin: 10/31/18 08:19 Dose: 81 mg Atorvastatin Calcium (Lipitor) 20 mg PO HS [facility] Last Admin: 10/31/18 20:21 Dose: 20 mg Carvedilol (Coreg) 6.25 mg PO BID [facility] Last Admin: 10/31/18 20:21 Dose: 6.25 mg Dextrose/Water (Dextrose 50%) 25 gm SLOW IVP PRN PRN PRN Reason: Hypoglycemia Diphenhydramine HCl (Benadryl) 25 mg PO HSPRN PRN PRN Reason: Insomnia Last Admin: 10/30/18 20:49 Dose: 25 mg Duloxetine HCl (Cymbalta) 60 mg PO BID [facility] Last Admin: 10/31/18 20:22 Dose: 60 mg Furosemide (Lasix) 40 mg PO DAILY-AC [facility] Gabapentin (Neurontin) 600 mg PO BID [facility] Last Admin: 10/31/18 20:22 Dose: 600 mg Glucagon (Glucagon) 1 mg IM PRN PRN PRN Reason: Hypoglycemia Sodium Chloride (Normal Saline 0.9%) 1,000 mls @ 100 mls/hr IV .Q10H [facility] Last Admin: 10/31/18 23:40 Dose: Not Given Dextrose/Water (D5w) 1,000 mls @ 0 mls/hr IV .Q0M PRN PRN Reason: Hypoglycemia Insulin Human Regular (Humulin R) 0 units SC .MILD SLIDING SCALE PRN PRN Reason: Mild Correctional Scale Insulin Human Regular (Humulin R) 0 units SC .BEDTIME SLIDING SC PRN PRN Reason: Bedtime Correctional Scale Lisinopril (Zestril) 2.5 mg PO DAILY [facility] Last Admin: 10/31/18 08:18 Dose: 2.5 mg Mometasone Furoate/Formoterol Fumar (Dulera 200 Mcg/5 Mcg Inhaler) 2 puff INH BID-RT [facility] Last Admin: 10/31/18 18:19 Dose: 2 puff Morphine Sulfate (Morphine) 4 mg SLOW IVP Q4H PRN PRN Reason: Chest Pain (7-10) Morphine Sulfate (Morphine) 2 mg SLOW IVP Q4H PRN PRN Reason: CHEST PAIN (4-6) Last Admin: 10/29/18 08:14 Dose: 2 mg Nitrofurantoin Macrocrystals (Macrobid) 100 mg PO DAILY [facility] Last Admin: 10/31/18 08:19 Dose: 100 mg Nitroglycerin (Nitrostat) 0.4 mg SL Q5MIN PRN PRN Reason: Chest Pain Oxybutynin Chloride (Ditropan Xl) 10 mg PO DAILY [facility] Last Admin: 10/31/18 08:18 Dose: 10 mg Polyethylene Glycol (Miralax) 17 gm PO DAILY [facility] Last Admin: 10/31/18 08:18 Dose: 17 gm Senna/Docusate Sodium (Senokot S) 2 tab PO BID [facility] Last Admin: 10/31/18 20:22 Dose: 2 tab Sodium Chloride (Flush - Normal Saline) 10 ml IVF PRN PRN PRN Reason: Saline Flush Last Admin: 10/31/18 10:03 Dose: 10 ml Sodium Chloride (Flush - Normal Saline) 10 ml IVF Q12HR [facility] Last Admin: 10/31/18 20:23 Dose: 10 ml Ticagrelor (Brilinta) 90 mg PO BID [facility] Last Admin: 10/31/18 20:23 Dose: 90 mg Vital Signs & Weight: Vital Signs Temp Pulse Pulse BP BP 11/01/18 09:14 78 72 124/61 99/60 11/01/18 04:00 97.6 F 11/01/18 00:00 97.5 F L Weight 208 lb 1.862 oz - Physical Exam General: alert & oriented x3 Neck: supple neck Cardiac: regular rate and rhythm, S1/S2 Lungs: clear to auscultation, decreased breath sounds Neuro: cranial nerve 2-12 intact Abdomen: unremarkable Musculoskeletal: decreased range of motion - Labs Result Diagrams: 11/01/18 04:33 11/01/18 04:33 Troponin/CKMB CK-MB (CK-2) 74.4 ng/mL (0-6.6) H* 09/21/19 18:49 Troponin I 20.559 ng/mL (< 0.028) H* 10/30/18 05:00 - Telemetry Sinus rhythms and dysrhythmias: sinus rhythm - Assessment/Plan Assessment/Plan: 1. CAD with s/p BMS in RCA with 90% stenosis in porx LAD and 50% in OM on 2018 - Stable with Coreg, ROSIE, Lipitor, Brilinta, ASA; Plan for CABG to LAD and possible distal RCA by Dr Manrique in 4-6 wks. 2. HTN - stable 3. HLD - on statin 4. DM type 2 - managed by PCP 5. Thrombocytopenia 6. SLE 7. Chronic UTI - On Macrobid for UTI suppression MAR reviewed * Echo on 10/29/2018 with EF 45-50%, inferior hypokinesis, grade I dd, mild MR, AR, TR, and MD * Ok to tx to Tele. Pt. seen and eval. by me. I agree with the A/P by the AGRICULTURAL EXTENSION AGENT. She was a little dizzy today after getting up to the bedside commode. Chest clear. RRR. Appreciate consult by CV surgery. Hopefully home in 1-2 days.
[2018-11-01] MEDS: Gabapentin 300 MG CAP PO SCH ×2 (10:15→20:54)
[2018-11-01] MEDS: Carvedilol 6.25 MG TAB PO SCH ×2 (10:15→20:53)
[2018-11-01] MEDS: Aspirin Chewable 81 MG TAB PO SCH (10:15)
[2018-11-01] MEDS: Senokot S 8.6-50 MG TAB PO SCH ×2 (10:15→20:54)
[2018-11-01] MEDS: DULoxetine 60 MG CAP PO SCH ×2 (10:15→20:53)
[2018-11-01] MEDS: Furosemide 40 MG TAB PO SCH (10:16)
[2018-11-01] MEDS: TICAGRELOR 90 MG TABLET PO SCH ×2 (10:16→20:53)
[2018-11-01] MEDS: Lisinopril 2.5 MG TAB PO SCH (10:16)
[2018-11-01] MEDS: Nitrofurantoin Monohyd/M-Cryst 100 MG CAP PO SCH (10:17)
[2018-11-01] MEDS: Polyethylene Glycol 3350 17 GM Packet PO SCH (10:17)
[2018-11-01] MEDS: Oxybutynin ER 5 MG TAB PO SCH (10:17)
[2018-11-01] MEDS: Sodium Chloride 0.9% 1,000 ML IV SCH ×2 (10:25→17:56)
--- NOTE | 2018-11-01 14:53 | PDOC.HOSPP ---
- Subjective Encounter Date: 11/01/18 Encounter Time: 14:45 Subjective: f/u for STEMI s/p BMS to RCA on medical therapy including Brilinta. Plan for consideration of CABG in 4-6 weeks. - Objective Vital Signs & Weight: Vital Signs (12 hours) Temp Pulse Pulse Pulse BP BP BP 11/01/18 10:16 68 115/61 11/01/18 10:15 115/61 11/01/18 09:14 78 72 124/61 99/60 11/01/18 09:00 11/01/18 07:00 98.1 F 11/01/18 04:00 97.6 F Pulse Ox 11/01/18 10:16 11/01/18 10:15 11/01/18 09:14 11/01/18 09:00 99 11/01/18 07:00 11/01/18 04:00 Weight Weight 208 lb 1.862 oz Most Recent Monitor Data Heart Rate from ECG 60 NIBP 96/53 NIBP BP-Mean 67 Respiration from ECG 17 SpO2 100 I&O: 10/31/18 11/01/18 11/02/18 06:59 06:59 06:59 Intake Total 1460 1580 780 Output Total 1701 1390 400 Balance -241 190 380 Result Diagrams: 11/01/18 04:33 11/01/18 04:33 Additional Labs: Accuchecks 11/01/18 10/31/18 10/31/18 06:14 21:31 17:37 POC Glucose 102 88 103 Radiology Reviewed by me: Yes (Echo - EF 45-50%, diast dysfxn, inf hypokinesis) EKG Reviewed by me: Yes (Tele - SR) Hospitalist ROS - Medication Medications: Active Medications Generic Name Dose Route Start Last Admin Trade Name Freq PRN Reason Stop Dose Admin Aspirin 81 mg 10/29/18 09:00 11/01/18 10:15 Aspirin Chewable PO 81 mg DAILY SYED Administration Atorvastatin Calcium 20 mg 10/29/18 21:00 10/31/18 20:21 Lipitor PO 20 mg HS SYED Administration Carvedilol 6.25 mg 10/30/18 21:00 11/01/18 10:15 Coreg PO 6.25 mg BID SYED Administration Diphenhydramine HCl 25 mg 10/30/18 18:52 10/30/18 20:49 Benadryl PO 25 mg HSPRN PRN Administration Insomnia Duloxetine HCl 60 mg 10/29/18 21:00 11/01/18 10:15 Cymbalta PO 60 mg BID SYED Administration Furosemide 40 mg 11/01/18 07:30 11/01/18 10:16 Lasix PO 40 mg DAILY-AC SYED Administration Gabapentin 600 mg 10/29/18 21:00 11/01/18 10:15 Neurontin PO 600 mg BID SYED Administration Sodium Chloride 1,000 mls @ 100 mls/hr 10/28/18 23:54 11/01/18 10:25 Normal Saline 0.9% IV Not Given .Q10H SYED Lisinopril 2.5 mg 10/29/18 09:00 11/01/18 10:16 Zestril PO 2.5 mg DAILY SYED Administration Mometasone Furoate/Formoterol Fumar 2 puff 10/29/18 18:30 10/31/18 18:19 Dulera 200 Mcg/5 Mcg Inhaler INH 2 puff BID-RT SYED Administration Morphine Sulfate 2 mg 10/28/18 23:57 10/29/18 08:14 Morphine SLOW IVP 2 mg Q4H PRN Administration CHEST PAIN (4-6) Nitrofurantoin Macrocrystals 100 mg 10/30/18 09:00 11/01/18 10:17 Macrobid PO 100 mg DAILY SYED Administration Oxybutynin Chloride 10 mg 10/30/18 09:00 11/01/18 10:17 Ditropan Xl PO 10 mg DAILY SYED Administration Polyethylene Glycol 17 gm 10/31/18 09:00 11/01/18 10:17 Miralax PO Not Given DAILY SYED Senna/Docusate Sodium 2 tab 10/30/18 21:00 11/01/18 10:15 Senokot S PO 2 tab BID SYED Administration Sodium Chloride 10 ml 10/28/18 23:54 10/31/18 10:03 Flush - Normal Saline IVF 10 ml PRN PRN Administration Saline Flush Sodium Chloride 10 ml 10/29/18 09:00 11/01/18 10:16 Flush - Normal Saline IVF 10 ml Q12HR SYED Administration Ticagrelor 90 mg 10/29/18 09:00 11/01/18 10:16 Brilinta PO 90 mg BID SYED Administration - Exam General Appearance: NAD, awake alert Eye: PERRL, anicteric sclera ENT: normocephalic atraumatic, no oropharyngeal lesions Neck: supple, symmetric, no JVD, no thyromegaly, no lymphadenopathy Heart: RRR, no murmur, no gallops, no rubs, normal peripheral pulses Respiratory: CTAB, no wheezes, no rales, no ronchi, normal chest expansion, no tachypnea Gastrointestinal: soft, non-tender, non-distended, normal bowel sounds, no palpable masses Extremities: no cyanosis, no clubbing, no edema Skin: normal turgor, no lesions Neurological: cranial nerve grossly intact, no focal deficits, no new deficit Musculoskeletal: generalized weakness Psychiatric: normal affect, A&O x 3 Hosp A/P (1) STEMI (ST elevation myocardial infarction) Status: Acute Qualifiers: Involved coronary artery: right coronary artery Qualified Code(s): I21.11 - ST elevation (STEMI) myocardial infarction involving right coronary artery Plan: s/p BMS RCA with plans for potential CABG in 4-6wks, continue ASA, Lipitor, Lisinopril, Brilinta and Coreg (2) Thrombocytopenia Code(s): D69.6 - THROMBOCYTOPENIA, UNSPECIFIED Status: Acute Plan: Secondary to anti-platelet agents, continue to monitor trend and modify based on clinical response (3) HTN (hypertension) Code(s): I10 - ESSENTIAL (PRIMARY) HYPERTENSION Status: Chronic Qualifiers: Hypertension type: essential hypertension Qualified Code(s): I10 - Essential (primary) hypertension Plan: BP trend remains low, continue to titrate BP regimen to avoid orthostatic changes (4) SLE (systemic lupus erythematosus related syndrome) Code(s): M32.9 - SYSTEMIC LUPUS ERYTHEMATOSUS, UNSPECIFIED Status: Chronic Plan: Stable, continue supportive mgmt - Plan PT/OT, psychologist social, out of bed/ambulate, DVT proph w/SCDs Stable currently Continue ASA, Brilinta Continue Lipitor, Lisinopril, Coreg OOB/ambulate ? Cardiac rehab as outpt
[2018-11-01] MEDS: Mometasone/Formoterol 120 PUFF INHALER INH SCH ×2 (18:28)
[2018-11-01] MEDS: Atorvastatin Calcium 20 MG TAB PO SCH (20:53)
[2018-11-02] MEDS: Sodium Chloride 0.9% 1,000 ML IV SCH ×2 (05:49→15:06)
[2018-11-02] MEDS: Mometasone/Formoterol 120 PUFF INHALER INH SCH ×2 (07:38→18:14)
[2018-11-02] MEDS: Polyethylene Glycol 3350 17 GM Packet PO SCH (09:08)
[2018-11-02] MEDS: Furosemide 40 MG TAB PO SCH (09:09)
[2018-11-02] MEDS: DULoxetine 60 MG CAP PO SCH ×2 (09:09→20:59)
[2018-11-02] MEDS: Senokot S 8.6-50 MG TAB PO SCH ×2 (09:09→20:59)
[2018-11-02] MEDS: Oxybutynin ER 5 MG TAB PO SCH (09:09)
[2018-11-02] MEDS: Carvedilol 6.25 MG TAB PO SCH (09:09)
[2018-11-02] MEDS: Gabapentin 300 MG CAP PO SCH ×2 (09:09→20:59)
[2018-11-02] MEDS: TICAGRELOR 90 MG TABLET PO SCH ×2 (09:10→20:58)
[2018-11-02] MEDS: Lisinopril 2.5 MG TAB PO SCH (09:10)
[2018-11-02] MEDS: Aspirin Chewable 81 MG TAB PO SCH (09:10)
[2018-11-02] MEDS: Nitrofurantoin Monohyd/M-Cryst 100 MG CAP PO SCH (09:10)
--- NOTE | 2018-11-02 09:49 | PDOC.CPN ---
- Subjective Date: 11/02/18 Time: 09:57 Interval history: The pt seen and examined. No overnight events. No cardiac complaints. - Objective Allergies/Adverse Reactions: Allergies Allergy/AdvReac Type Severity Reaction Status Date / Time No Known Drug Allergies Allergy Verified 10/29/18 05:55 Visit Medications: Current Medications Aspirin (Aspirin Chewable) 81 mg PO DAILY [facility] Last Admin: 11/02/18 09:10 Dose: 81 mg Atorvastatin Calcium (Lipitor) 20 mg PO HS [facility] Last Admin: 11/01/18 20:53 Dose: 20 mg Carvedilol (Coreg) 6.25 mg PO BID [facility] Last Admin: 11/02/18 09:09 Dose: 6.25 mg Dextrose/Water (Dextrose 50%) 25 gm SLOW IVP PRN PRN PRN Reason: Hypoglycemia Diphenhydramine HCl (Benadryl) 25 mg PO HSPRN PRN PRN Reason: Insomnia Last Admin: 10/30/18 20:49 Dose: 25 mg Duloxetine HCl (Cymbalta) 60 mg PO BID [facility] Last Admin: 11/02/18 09:09 Dose: 60 mg Furosemide (Lasix) 40 mg PO DAILY-AC [facility] Last Admin: 11/02/18 09:09 Dose: 40 mg Gabapentin (Neurontin) 600 mg PO BID [facility] Last Admin: 11/02/18 09:09 Dose: 600 mg Glucagon (Glucagon) 1 mg IM PRN PRN PRN Reason: Hypoglycemia Sodium Chloride (Normal Saline 0.9%) 1,000 mls @ 100 mls/hr IV .Q10H [facility] Last Admin: 11/02/18 05:49 Dose: Not Given Dextrose/Water (D5w) 1,000 mls @ 0 mls/hr IV .Q0M PRN PRN Reason: Hypoglycemia Insulin Human Regular (Humulin R) 0 units SC .MILD SLIDING SCALE PRN PRN Reason: Mild Correctional Scale Insulin Human Regular (Humulin R) 0 units SC .BEDTIME SLIDING SC PRN PRN Reason: Bedtime Correctional Scale Lisinopril (Zestril) 2.5 mg PO DAILY [facility] Last Admin: 11/02/18 09:10 Dose: 2.5 mg Mometasone Furoate/Formoterol Fumar (Dulera 200 Mcg/5 Mcg Inhaler) 2 puff INH BID-RT [facility] Last Admin: 11/02/18 07:38 Dose: 2 puff Morphine Sulfate (Morphine) 4 mg SLOW IVP Q4H PRN PRN Reason: Chest Pain (7-10) Morphine Sulfate (Morphine) 2 mg SLOW IVP Q4H PRN PRN Reason: CHEST PAIN (4-6) Last Admin: 10/29/18 08:14 Dose: 2 mg Nitrofurantoin Macrocrystals (Macrobid) 100 mg PO DAILY [facility] Last Admin: 11/02/18 09:10 Dose: 100 mg Nitroglycerin (Nitrostat) 0.4 mg SL Q5MIN PRN PRN Reason: Chest Pain Oxybutynin Chloride (Ditropan Xl) 10 mg PO DAILY [facility] Last Admin: 11/02/18 09:09 Dose: 10 mg Polyethylene Glycol (Miralax) 17 gm PO DAILY [facility] Last Admin: 11/02/18 09:08 Dose: Not Given Senna/Docusate Sodium (Senokot S) 2 tab PO BID [facility] Last Admin: 11/02/18 09:09 Dose: Not Given Sodium Chloride (Flush - Normal Saline) 10 ml IVF PRN PRN PRN Reason: Saline Flush Last Admin: 10/31/18 10:03 Dose: 10 ml Sodium Chloride (Flush - Normal Saline) 10 ml IVF Q12HR [facility] Last Admin: 11/02/18 09:08 Dose: 10 ml Ticagrelor (Brilinta) 90 mg PO BID [facility] Last Admin: 11/02/18 09:10 Dose: 90 mg Vital Signs & Weight: Vital Signs Temp Pulse Resp BP Pulse Ox 11/02/18 09:15 68 100/59 L 11/02/18 09:10 63 11/02/18 07:45 97.8 F 63 16 96/50 L 99 11/02/18 07:38 65 12 11/02/18 04:00 97.6 F 65 16 111/54 L 93 L Weight 205 lb 12.8 oz - Physical Exam General: alert & oriented x3 Neck: supple neck Cardiac: regular rhythm Lungs: clear to auscultation Neuro: cranial nerve 2-12 intact Abdomen: unremarkable Skin: clear Musculoskeletal: decreased range of motion - Labs Result Diagrams: 11/01/18 04:33 11/01/18 04:33 Troponin/CKMB CK-MB (CK-2) 74.4 ng/mL (0-6.6) H* 10/29/18 18:49 Troponin I 20.559 ng/mL (< 0.028) H* 10/30/18 05:00 - Telemetry Sinus rhythms and dysrhythmias: sinus rhythm - Assessment/Plan Assessment/Plan: 1. CAD with s/p BMS in RCA with 90% stenosis in porx LAD and 50% in OM on 2018 - Stable with Coreg, ROSIE, Lipitor, Brilinta, ASA; Plan for CABG to LAD and possible distal RCA by Dr Manrique in 4-6 wks (Appreciate consult by CV surgery!) 2. HTN - stable 3. HLD - on statin 4. DM type 2 - managed by PCP 5. Thrombocytopenia 6. SLE 7. Chronic UTI - On Macrobid for UTI suppression 8. Generalized weakness - encourage to walk with a walker and assist MAR reviewed * Echo on 10/29/2018 with EF 45-50%, inferior hypokinesis, grade I dd, mild MR, AR, TR, and LA * OK to d/c home if the pt can walk without any difficulties with a walker or any cardiac complaints. * The pt will d/c home with William sample; The pt will f/u with Dr Yun' office or [facility] at [facility] within 2 wks. * The pt prefers to undergo CABG at [facility] due to her insurance. Pt. seen and eval. by me. I agree with the A/P by the SALT MANAGER. The BP is on the low side and she feels lightheaded at times. Will decr. Coreg. Chesrt clear. RRR gjmays
--- NOTE | 2018-11-02 10:32 | PRG ---
DATE OF SERVICE: 11/02/2018 SUBJECTIVE: This morning, the patient is better, less cough, less shortness of breath. OBJECTIVE: VITAL SIGNS: Blood pressure is 100/59, sats are 100% on room air, temperature 97, and pulse 63. CHEST: No wheezing or crackles. CARDIAC: Normal S1 and S2. No gallops. ASSESSMENT: 1. Bronchitis. 2. Coronary artery disease. 3. Hypertension. PLAN: Pulmonary ortiz, disposition as per Cardiology. Pulmonary will follow at a distance. Please call as needed. Job ID: [id number]
--- NOTE | 2018-11-02 18:04 | PDOC.HOSPP ---
- Subjective Encounter Date: 11/02/18 Encounter Time: 12:00 Subjective: Patient seen and examined for med mngt. No CP, fever or SOB. No new complaints. No overnight events - Objective Vital Signs & Weight: Vital Signs (12 hours) Temp Pulse Pulse Pulse Resp BP BP 11/02/18 17:18 98.1 F 68 18 11/02/18 12:00 97.6 F 73 16 11/02/18 10:38 85 68 94/64 81/48 L 11/02/18 09:15 68 11/02/18 09:10 63 11/02/18 07:45 97.8 F 63 16 11/02/18 07:38 65 12 BP BP Pulse Ox Pulse Ox 11/02/18 17:18 105/53 L 94 L 11/02/18 12:00 104/52 L 96 11/02/18 10:38 94 L 11/02/18 09:15 100/59 L 11/02/18 09:10 11/02/18 07:45 96/50 L 99 11/02/18 07:38 Weight Weight 205 lb 12.8 oz Most Recent Monitor Data Heart Rate from ECG 60 NIBP 96/53 NIBP BP-Mean 67 Respiration from ECG 17 SpO2 100 I&O: 11/01/18 11/02/18 11/03/18 06:59 06:59 06:59 Intake Total 1580 1140 240 Output Total 1390 700 Balance 190 440 240 Result Diagrams: 11/01/18 04:33 11/01/18 04:33 Additional Labs: Accuchecks 11/02/18 11/01/18 05:59 20:25 POC Glucose 107 101 EKG Reviewed by me: Yes (Tele SR) Hospitalist ROS - Review of Systems Respiratory: denies: cough, dry, shortness of breath, hemoptysis, SOB with excertion, pleuritic pain, sputum, wheezing, other Cardiovascular: denies: chest pain, palpitations, orthopnea, paroxysmal noc. dyspnea, edema, light headedness, other - Medication Medications: Active Medications Generic Name Dose Route Start Last Admin Trade Name Freq PRN Reason Stop Dose Admin Aspirin 81 mg 10/29/18 09:00 11/02/18 09:10 Aspirin Chewable PO 81 mg DAILY SYED Administration Atorvastatin Calcium 20 mg 10/29/18 21:00 11/01/18 20:53 Lipitor PO 20 mg HS SYED Administration Carvedilol 6.25 mg 10/30/18 21:00 11/02/18 09:09 Coreg PO 6.25 mg BID SYED Administration Diphenhydramine HCl 25 mg 10/30/18 18:52 10/30/18 20:49 Benadryl PO 25 mg HSPRN PRN Administration Insomnia Duloxetine HCl 60 mg 10/29/18 21:00 11/02/18 09:09 Cymbalta PO 60 mg BID SYED Administration Furosemide 40 mg 11/01/18 07:30 11/02/18 09:09 Lasix PO 40 mg DAILY-AC SYED Administration Gabapentin 600 mg 10/29/18 21:00 11/02/18 09:09 Neurontin PO 600 mg BID SYED Administration Sodium Chloride 1,000 mls @ 100 mls/hr 10/28/18 23:54 11/02/18 15:06 Normal Saline 0.9% IV Not Given .Q10H SYED Lisinopril 2.5 mg 10/29/18 09:00 11/02/18 09:10 Zestril PO 2.5 mg DAILY SYDE Administration Mometasone Furoate/Formoterol Fumar 2 puff 10/29/18 18:30 11/02/18 07:38 Dulera 200 Mcg/5 Mcg Inhaler INH 2 puff BID-RT SYED Administration Morphine Sulfate 2 mg 10/28/18 23:57 10/29/18 08:14 Morphine SLOW IVP 2 mg Q4H PRN Administration CHEST PAIN (4-6) Nitrofurantoin Macrocrystals 100 mg 10/30/18 09:00 11/02/18 09:10 Macrobid PO 100 mg DAILY SYED Administration Oxybutynin Chloride 10 mg 10/30/18 09:00 11/02/18 09:09 Ditropan Xl PO 10 mg DAILY SYED Administration Polyethylene Glycol 17 gm 10/31/18 09:00 11/02/18 09:08 Miralax PO Not Given DAILY SYED Senna/Docusate Sodium 2 tab 10/30/18 21:00 11/02/18 09:09 Senokot S PO Not Given BID SYED Sodium Chloride 10 ml 10/28/18 23:54 10/31/18 10:03 Flush - Normal Saline IVF 10 ml PRN PRN Administration Saline Flush Sodium Chloride 10 ml 10/29/18 09:00 11/02/18 09:08 Flush - Normal Saline IVF 10 ml Q12HR SYED Administration Ticagrelor 90 mg 10/29/18 09:00 11/02/18 09:10 Brilinta PO 90 mg BID SYED Administration - Exam General Appearance: NAD Heart: RRR, no rubs Respiratory: CTAB, no rales Gastrointestinal: soft, non-tender, normal bowel sounds Extremities: no edema Hosp A/P (1) DM2 (diabetes mellitus, type 2) Status: Chronic Qualifiers: Chronic kidney disease stage: stage 2 (mild) (2) HTN (hypertension) Code(s): I10 - ESSENTIAL (PRIMARY) HYPERTENSION Status: Chronic Qualifiers: Hypertension type: essential hypertension Qualified Code(s): I10 - Essential (primary) hypertension (3) HLD (hyperlipidemia) Code(s): E78.5 - HYPERLIPIDEMIA, UNSPECIFIED Status: Chronic (4) Obesity (BMI 30.0-34.9) Code(s): E66.9 - OBESITY, UNSPECIFIED Status: Chronic (5) Thrombocytopenia Code(s): D69.6 - THROMBOCYTOPENIA, UNSPECIFIED Status: Acute (6) SLE (systemic lupus erythematosus related syndrome) Code(s): M32.9 - SYSTEMIC LUPUS ERYTHEMATOSUS, UNSPECIFIED Status: Chronic - Plan Cont ASA/BB/ACEI/Statins DC sliding scale Cont Cymbalta/Gabapentin Cont Macrobid for chronic UTI Resume Metformin at dc
[2018-11-02] MEDS: Carvedilol 3.125 MG TAB PO SCH (20:59)
[2018-11-02] MEDS: Atorvastatin Calcium 20 MG TAB PO SCH (20:59)
[2018-11-03] MEDS: Sodium Chloride 0.9% 1,000 ML IV SCH ×2 (04:46→08:14)
[2018-11-03] MEDS: Mometasone/Formoterol 120 PUFF INHALER INH SCH (07:07)
[2018-11-03] MEDS: Aspirin Chewable 81 MG TAB PO SCH (08:11)
[2018-11-03] MEDS: DULoxetine 60 MG CAP PO SCH (08:12)
[2018-11-03] MEDS: Gabapentin 300 MG CAP PO SCH (08:12)
[2018-11-03] MEDS: Nitrofurantoin Monohyd/M-Cryst 100 MG CAP PO SCH (08:12)
[2018-11-03] MEDS: Carvedilol 3.125 MG TAB PO SCH (08:12)
[2018-11-03] MEDS: Oxybutynin ER 5 MG TAB PO SCH (08:12)
[2018-11-03] MEDS: TICAGRELOR 90 MG TABLET PO SCH (08:12)
[2018-11-03] MEDS: Furosemide 40 MG TAB PO SCH (08:12)
[2018-11-03] MEDS: Lisinopril 2.5 MG TAB PO SCH (08:12)
[2018-11-03] MEDS: Senokot S 8.6-50 MG TAB PO SCH (08:13)
[2018-11-03] MEDS: Polyethylene Glycol 3350 17 GM Packet PO SCH (08:13)
[2018-11-03 10:12] VITALS: TEMP 97.8
--- NOTE | 2018-11-03 10:47 | PRG ---
DATE OF SERVICE: 11/03/2018 SUBJECTIVE: This morning, she is better, less cough, less shortness of breath. OBJECTIVE: VITAL SIGNS: Temperature 98, pulse 60, respirations 16, blood pressure . CHEST: Decreased breath sounds. No wheezing. CARDIAC: Normal S1 and S2 . ASSESSMENT AND PLAN: Bronchitis, congestive heart failure, coronary artery disease. Disposition as per Cardiology. Job ID: [id number]
--- NOTE | 2018-11-03 12:53 | PDOC.CPN ---
- Subjective Date: 11/03/18 Time: 12:54 Interval history: The pt seen and examined. No overnight events. No cardiac complaints. - Objective Allergies/Adverse Reactions: Allergies Allergy/AdvReac Type Severity Reaction Status Date / Time No Known Drug Allergies Allergy Verified 10/29/18 05:55 Visit Medications: Current Medications Aspirin (Aspirin Chewable) 81 mg PO DAILY [facility] Last Admin: 11/03/18 08:11 Dose: 81 mg Atorvastatin Calcium (Lipitor) 20 mg PO HS [facility] Last Admin: 11/02/18 20:59 Dose: 20 mg Carvedilol (Coreg) 3.125 mg PO BID [facility] Last Admin: 11/03/18 08:12 Dose: 3.125 mg Dextrose/Water (Dextrose 50%) 25 gm SLOW IVP PRN PRN PRN Reason: Hypoglycemia Diphenhydramine HCl (Benadryl) 25 mg PO HSPRN PRN PRN Reason: Insomnia Last Admin: 10/30/18 20:49 Dose: 25 mg Duloxetine HCl (Cymbalta) 60 mg PO BID [facility] Last Admin: 11/03/18 08:12 Dose: 60 mg Furosemide (Lasix) 40 mg PO DAILY-AC [facility] Last Admin: 11/03/18 08:12 Dose: 40 mg Gabapentin (Neurontin) 600 mg PO BID [facility] Last Admin: 11/03/18 08:12 Dose: 600 mg Glucagon (Glucagon) 1 mg IM PRN PRN PRN Reason: Hypoglycemia Sodium Chloride (Normal Saline 0.9%) 1,000 mls @ 100 mls/hr IV .Q10H [facility] Last Admin: 11/03/18 08:14 Dose: Not Given Dextrose/Water (D5w) 1,000 mls @ 0 mls/hr IV .Q0M PRN PRN Reason: Hypoglycemia Insulin Human Regular (Humulin R) 0 units SC .MILD SLIDING SCALE PRN PRN Reason: Mild Correctional Scale Insulin Human Regular (Humulin R) 0 units SC .BEDTIME SLIDING SC PRN PRN Reason: Bedtime Correctional Scale Lisinopril (Zestril) 2.5 mg PO DAILY [facility] Last Admin: 11/03/18 08:12 Dose: 2.5 mg Mometasone Furoate/Formoterol Fumar (Dulera 200 Mcg/5 Mcg Inhaler) 2 puff INH BID-RT [facility] Last Admin: 11/03/18 07:07 Dose: 2 puff Morphine Sulfate (Morphine) 4 mg SLOW IVP Q4H PRN PRN Reason: Chest Pain (7-10) Morphine Sulfate (Morphine) 2 mg SLOW IVP Q4H PRN PRN Reason: CHEST PAIN (4-6) Last Admin: 10/29/18 08:14 Dose: 2 mg Nitrofurantoin Macrocrystals (Macrobid) 100 mg PO DAILY [facility] Last Admin: 11/03/18 08:12 Dose: 100 mg Nitroglycerin (Nitrostat) 0.4 mg SL Q5MIN PRN PRN Reason: Chest Pain Oxybutynin Chloride (Ditropan Xl) 10 mg PO DAILY [facility] Last Admin: 11/03/18 08:12 Dose: 10 mg Polyethylene Glycol (Miralax) 17 gm PO DAILY [facility] Last Admin: 11/03/18 08:13 Dose: Not Given Senna/Docusate Sodium (Senokot S) 2 tab PO BID [facility] Last Admin: 11/03/18 08:13 Dose: Not Given Sodium Chloride (Flush - Normal Saline) 10 ml IVF PRN PRN PRN Reason: Saline Flush Last Admin: 10/31/18 10:03 Dose: 10 ml Sodium Chloride (Flush - Normal Saline) 10 ml IVF Q12HR [facility] Last Admin: 11/03/18 08:12 Dose: 10 ml Ticagrelor (Brilinta) 90 mg PO BID [facility] Last Admin: 11/03/18 08:12 Dose: 90 mg Vital Signs & Weight: Vital Signs Temp Pulse Resp BP Pulse Ox 11/03/18 08:12 68 11/03/18 08:00 97.8 F 68 16 120/68 98 11/03/18 07:07 68 12 11/03/18 04:00 97.3 F L 68 18 109/84 92 L Weight 209 lb 4.8 oz - Physical Exam General: alert & oriented x3 HEENT: mucus membranes moist Neck: supple neck Cardiac: regular rate and rhythm, S1/S2 Lungs: clear to auscultation Neuro: cranial nerve 2-12 intact Skin: clear Musculoskeletal: normal range of motion - Labs Result Diagrams: 11/01/18 04:33 11/01/18 04:33 Troponin/CKMB CK-MB (CK-2) 74.4 ng/mL (0-6.6) H* 10/29/18 18:49 Troponin I 20.559 ng/mL (< 0.028) H* 10/30/18 05:00 - Telemetry Sinus rhythms and dysrhythmias: sinus rhythm - Assessment/Plan Assessment/Plan: 1. CAD with s/p BMS in RCA with 90% stenosis in porx LAD and 50% in OM on 2018 - Stable with Coreg, ROSIE, Lipitor, Brilinta, ASA; Plan for CABG to LAD and possible distal RCA by Dr Manrique in 4-6 wks (Appreciate consult by CV surgery!) 2. HTN - stable 3. HLD - on statin 4. DM type 2 - managed by PCP 5. Thrombocytopenia 6. SLE 7. Chronic UTI - On Macrobid for UTI suppression 8. Generalized weakness - encourage to walk with a walker and assist MAR reviewed * Echo on 10/29/2018 with EF 45-50%, inferior hypokinesis, grade I dd, mild MR, AR, TR, and MS * OK to d/c home if the pt can walk without any difficulties with a walker or any cardiac complaints. * The pt will d/c home with William sample; The pt will f/u with Dr Yun' office or Meringuer at [facility] within 2 wks. * The pt prefers to undergo CABG at [facility] due to her insurance.
[2018-11-03 12:58] VITALS: BP 97/51
--- NOTE | 2018-11-03 15:12 | PQF ---
MIKE DENSON ZBIGNIEW A MD [id number] [facility] [id number] CLINICAL DOCUMENTATION IMPROVEMENT CLARIFICATION FORM: ICD-10 Updated PLEASE DO AN ADDENDUM TO THE PROGRESS NOTE WITH ANY DOCUMENTATION UPDATES OR ADDITIONS AND CARRY THROUGH TO DC SUMMARY. THANK YOU. DATE: 11/03/18 ATTN:DR. Jose Angel ABARCA Please exercise your independent, professional judgment in responding to the clarification form. Clinical indicators are provided on the bottom of this form for your review. Please check appropriate box(s): CONGESTIVE HEART FAILURE: A. TYPE: [ ] Systolic / HFrEF [ ] Diastolic / HFpEF [ x ] Combined Systolic / Diastolic B. ACUITY [ x ] Acute [ ] Acute on Chronic [ ] Chronic [ ] Other diagnosis [ ] Unable to determine In addition, please specify: Present on Admission (POA): [ x ] Yes [ ] No [ ] Unable to determine For continuity of documentation, please document condition throughout progress notes and discharge summary. Thank You. CLINICAL INDICATORS - SIGNS / SYMPTOMS / LABS 10/29 ECHO: EF 45-50%, E/A FLOW REVERSAL NOTED, SUGGESTIVE OF DIASTOLIC DYSFUNCTION. NORMAL RIGHT VENTRICULAR SIZE AND FUNCTION, LEFT ATRIUM IS OF NORMAL SIZE. MILD MITRAL REGURGITATION IS PRESENT. MILD AORTIC REGURGITATION IS NOTED. 10/31 PN (BEAR) SHE WAS HAVING SOME DIFFICULTY BREATHING LAST NIGHT, IMPRESSION AND PLAN: STATUS POST EMERGENCY CARDIAC CATHETERIZATION, DM, CHRONIC COUGH, DIASTOLIC DYSFUNCTION; A DOSE OF DIURETICS HAVE BEEN INITIATED. 10/31 PN (ARATO) SHE HAD THE EPISODE OF SOB LAST NIGHT, WHICH IMPROVED WITH LASIX 11/01, 11/03 PN (BEAR) ASSESSMENT/PLAN: CONGESTIVE HEART FAILURE, CHRONIC BRONCHITIS, CAROTID DISEASE RISK: ACUTE INFERIOR MYOCARDIAL INFARCTION (CHRIS/H&P) 10/28 HX HYPERTENSION (PN / LADHA) 10/29 DIASTOLIC DYSFUNCTION ( PN / BEAR) 10/31 TREATMENTS: LASIX PO ORDERED (11/01-PRESENT) SUPPLEMENTAL OXYGEN (10/30-11/01) THANK YOU! [employer] (This form is maintained as a part of the permanent medical record) 2014 [employer]. All Rights Reserved [email or web address] [phone] [facility]ORIAL HOSPITALLynda
--- NOTE | 2018-11-04 13:20 | DIS ---
DATE OF ADMISSION: 10/28/2018 DATE OF DISCHARGE: 11/03/2018 This is ALBERTO Ugalde dictating a report for Alyson Yun MD. PRIMARY CARE DOCTOR: Evy Haley MD PRIMARY OFFSET PRESSMAN: Alyson Yun MD CONSULT: [facility] doctor/hospitalist, and Dr. Peace, CV surgeon for CV consult. PROCEDURES: The patient underwent cardiac catheterization with bare-metal stent placement in right coronary arteries. DISCHARGE MEDICATIONS: 1. Aspirin 81 mg once a day. 2. Atorvastatin 20 mg once a day. 3. Carvedilol 3.125 mg twice a day. 4. Cymbalta 60 mg twice a day. 5. Lasix 40 mg once a day. 6. Gabapentin 60 mg twice a day as needed. 7. Lisinopril 2.5 mg once a day. 8. Dulera 20 mcg/5 mcg inhaler twice a day. 9. Macrobid 100 mg once a day for chronic UTI prevention. 10. Nitroglycerin 0.4 mg sublingual every 5 minutes as needed. 11. MiraLAX 17 g daily. 12. Senokot two tablet twice a day. 13. Brilinta 90 mg twice a day. 14. Metformin 500 mg once a day. 15. Oxybutynin 10 mg once a day. 16. Atarax 10 mg twice a day as needed. 17. Timolol one drop each eye at bedtime. 18. Prednisolone one drop each eye twice a day. 19. Dorzolamide one drop each eye at bedtime. 20. Lumigan one drop each eye twice a day. Discontinued medication was nitrofurantoin once a day. PRIMARY DIAGNOSIS: Coronary artery disease with bare-metal stent placement in right coronary arteries. SECONDARY DIAGNOSES: 1. Lupus. 2. Hypertension. 3. Hyperlipidemia. 4. Diabetes, type 2. 5. Thrombocytopenia. 6. Chronic urinary tract infection. 7. Generalized weakness. HISTORY OF PRESENT ILLNESS AND HOSPITAL COURSE: Ms. Reynolds is 73-year-old female, who presents to the emergency department for chest pain and has suffered an acute inferior myocardial infarction. The patient underwent cardiac catheterization and bare-metal stent placement in right coronary arteries. The patient is planned for CABG to LAD and possible distal RCA by Dr. Sigtenhorst in 4 to 6 weeks. The patient was discharged with Brilinta 90 mg twice a day for at least 4 to 6 weeks. The patient preferred to have the procedure in [facility] in [place] in the future. At this moment, the patient denies any chest pain, shortness of breath, dizziness, lightheadedness, or any cardiac complaints. She does not have any problem getting up from the bed to ambulate without any assistance. The patient is going to be discharged with Brilinta and nitroglycerin as needed. DISPOSITION: Stable and discharged to home. DISCHARGE INSTRUCTIONS: 1. Location: Home. 2. Activity: As tolerated. 3. Diabetic and heart healthy diet with low-sodium diet. 4. Followup: The patient will follow up with Dr. Yun' office or personnel interviewer in [facility] in 1 to 2 weeks. The patient is going to follow up with Dr. Peace within 1 month for possible CABG. TIME SPENT: Time spent at the bedside was more than 30 minutes. Job ID: [id number]
== END 2018-11-03 17:10 | disposition home or self-care (01) | DRG 248 ==
LOC: ERS 21:39 → CCL 22:00 → CCU 22:01 → 2NO 11-01 11:30
PROVIDERS: ADMIT Internal Medicine Cardiovascular Disease; ATTEND Internal Medicine Cardiovascular Disease
PROC: 02703DZ Dilation of Coronary Artery, One Artery with Intraluminal Device, Percutaneous Approach (ICD-10-PCS; principal; 2018-10-28)
PROC: 4A023N7 Measurement of Cardiac Sampling and Pressure, Left Heart, Percutaneous Approach (ICD-10-PCS; 2018-10-28)
PROC: B2111ZZ Fluoroscopy of Multiple Coronary Arteries using Low Osmolar Contrast (ICD-10-PCS; 2018-10-28)
PROC: B2151ZZ Fluoroscopy of Left Heart using Low Osmolar Contrast (ICD-10-PCS; 2018-10-28)
DX: I21.19 ST elevation (STEMI) myocardial infarction involving other coronary artery of inferior wall (principal); I50.41 Acute combined systolic (congestive) and diastolic (congestive) heart failure; N39.0 Urinary tract infection, site not specified; I13.0 Hypertensive heart and chronic kidney disease with heart failure and stage 1 through stage 4 chronic kidney disease, or unspecified chronic kidney disease; M19.90 Unspecified osteoarthritis, unspecified site; E78.5 Hyperlipidemia, unspecified; E66.9 Obesity, unspecified; D69.6 Thrombocytopenia, unspecified; M32.10 Systemic lupus erythematosus, organ or system involvement unspecified; E11.22 Type 2 diabetes mellitus with diabetic chronic kidney disease; I50.9 Heart failure, unspecified; J42 Unspecified chronic bronchitis; N18.2 Chronic kidney disease, stage 2 (mild); E11.9 Type 2 diabetes mellitus without complications; H40.9 Unspecified glaucoma; F32.9 Major depressive disorder, single episode, unspecified; Z87.01 Personal history of pneumonia (recurrent); Z90.710 Acquired absence of both cervix and uterus; Z68.32 Body mass index [BMI] 32.0-32.9, adult
CPT/HCPCS: 36415; 36416; 71045; 80048; 80053; 80069; 82553; 83735; 84484; 85014; 85018; 85025; 85049; 93005; 93010; 93306; 93798; 94760; 96374; 96375; C1725; C1769; C1876; C1887; J0461; J1644; J1940; J2250; J2270; J3246; J3475; J3490; Q0163

== ENCOUNTER 2018-11-05 13:26 | Inpatient (IN) | payer MEDICARE ==
[~2018-11-05 13:26] MED LIST: ISOVUE-370 76%-LOCM 1 ML ONE
--- NOTE | 2018-11-05 14:08 | CT ---
CT head noncontrast HISTORY: Altered mental status. Right-sided weakness. FINDINGS: No comparison. There is no evidence of acute intracranial hemorrhage or infarct. Ventricula r system is diffusely prominent. The peripheral sulci are relatively small given the distention of the ventricular system. There is no focal mass effect or shift of midline structures. Postoperative c hanges of the right lobe and left orbital floor. Visualized paranasal sinuses remain well aerated. IMPRESSION: Diffuse ventricular prominence. Consider normal pressure hydrocephalus. No acute intracra nial abnormalities are otherwise demonstrated. Findings were called to Dr. Barger in the emergency department at 1403 hours. Code CR.
--- NOTE | 2018-11-05 14:35 | CT ---
CT arteriogram neck with IV contrast and 3-D imaging CT arteriogram head with IV contrast and 3-D imaging CT brain with IV contrast HISTORY: Altered mental status. Right-sided numbness. FINDINGS: Patchy areas of hazy groundglass opacity throughout the partially visualized upper lung lob es.. Normal branching of the great vessels at the aortic arch. Very small amount of pericardial fluid. Calcified lymph nodes at the mediastinum. Good flow into each carotid and vertebral system. Minimal plaque. Each internal carotid artery is pat ent. [place] is intact. Good flow into each cerebral and cerebellar system. No internal thrombus or focal aneurysm. No enhancing brain lesions are apparent. Ventricular system is again seen to be diffusely distended. Please see separate report on noncontrast CT head. IMPRESSION: No acute vascular abnormalities are demonstrated. Mild atherosclerosis. Diffuse ventricular prominence. Findings were called to Dr. Barger in the emergency department at 1422 hours. Code CR.
[2018-11-05 14:37] LABS: Hemoglobin 11.6 g/dL (12.0-16.0); Mean Corpuscular HGB CONC 34.3 g/dL (32.0-36.0); Mean Corpuscular Hemoglobin 28.7 pg (27.0-31.0); Mean Corpuscular Volume 83.6 fL (78.0-98.0); Mean Platelet Volume 9.3 fL (7.4-10.4); Platelet Count 140 thou/uL (130-400); RBC Distribution Width 11.9 % (11.5-14.5); Red Blood Cell (RBC) Count 4.05 mill/uL (4.20-5.40); White Blood Cell (WBC) Count 5.4 thou/uL (4.8-10.8)
[2018-11-05 14:44] LABS: INR-International Normal Ratio 1.1; PTT 31.9 SEC (22.9-36.1)
[2018-11-05 14:52] LABS: ALT (SGPT) 10 U/L (8-55); AST (SGOT) 15 U/L (5-34); Albumin 3.6 g/dL (3.4-4.8); Alkaline Phosphatase 78 U/L (40-110); Anion Gap 12 mmol/L (10-20); BUN (Urea Nitrogen) 24 mg/dL (9.8-20.1); Bilirubin, Direct 0.3 mg/dL (0.1-0.3); Bilirubin, Total 0.7 mg/dL (0.2-1.2); Calc. Creatinine Clearance 0 mL/min (70-130); Calcium 8.9 mg/dL (7.8-10.44); Carbon Dioxide 21 mmol/L (23-31); Chloride 107 mmol/L (98-107); Estimated GFR-MDRD 61; Glucose 85 mg/dL (83-110); Protein, Total 6.3 g/dL (6.0-8.3); Sodium 136 mmol/L (136-145)
[2018-11-05 14:55] LABS: Band 6 % (5-11); Eosinophils 8 % (0-10); Lymphocytes 18 % (21-51); MDiff Complete? YES; Monocytes 13 % (0-10); Neutrophil 46 % (42-75); Ovalocytes SLIGHT = 2-5 cells (100X) (0-1/hpf); Platelet Morphology Comment Appears Adequate; Polychromasia SLIGHT = 2-3 cells (100X) (0-2/hpf); Reactive Lymphocytes 9 % (0-10); Tear Drops SLIGHT = 2-5 cells (100X) (0-1/hpf)
[2018-11-05] MEDS ORDERED: Aspirin Chewable 81 MG TAB ONE (16:13)
[2018-11-05] MEDS ORDERED: hydrOXYzine 10 MG TAB PO PRN (17:13)
[2018-11-05] MEDS ORDERED: Nitroglycerin 0.4 MG TAB (25 Tab Bottle) SL PRN (17:13)
[2018-11-05] MEDS ORDERED: Ondansetron PF 4 MG/2 ML Vial IVP PRN (17:16)
[2018-11-05] MEDS ORDERED: Sodium Chloride 0.9% 1,000 ML IV SCH (17:30)
[2018-11-05 19:19] VITALS: BMI 31.3
[2018-11-05] MEDS: Mometasone/Formoterol 120 PUFF INHALER INH SCH (20:02)
[2018-11-05] MEDS: Atorvastatin Calcium 20 MG TAB PO SCH (20:53)
[2018-11-05] MEDS: DULoxetine 60 MG CAP PO SCH (20:53)
[2018-11-05] MEDS: Senokot S 8.6-50 MG TAB PO SCH (20:53)
[2018-11-05] MEDS: Gabapentin 300 MG CAP PO SCH (20:54)
[2018-11-05] MEDS: Famotidine 20 MG TAB PO SCH (20:54)
[2018-11-05] MEDS: Carvedilol 3.125 MG TAB PO SCH (20:54)
[2018-11-05] MEDS: TICAGRELOR 90 MG TABLET PO SCH (20:55)
[2018-11-05] MEDS ORDERED: Timolol 0.5% Ophth Soln 5 ml Bottle EA EYE SCH (21:00)
[2018-11-05] MEDS ORDERED: prednisoLONE 1% Ophth Susp 5 ml Bottle EA EYE SCH (21:00)
[2018-11-05] MEDS ORDERED: Dorzolamide HCl 2% Ophth Soln 10 ml Bottle EA EYE SCH (21:00)
[2018-11-05] MEDS ORDERED: Latanoprost 0.005% Ophth Soln 2.5 ml Bottle EA EYE SCH (21:00)
--- NOTE | 2018-11-05 23:10 | HP ---
PRESENTING COMPLAINT: Right-sided numbness, tinging sensation and weakness. HISTORY OF PRESENT ILLNESS: The patient with a past medical history of lupus, obstructive sleep apnea, on CPAP machine, coronary artery disease, status post WA, status post PCI, diabetes mellitus, presented with right-sided numbness, heaviness started this morning. As per patient, she woke up when she started feeling right-sided numbness, heaviness, also she felt difficulty speaking and tightness in her mouth area. As per patient, symptoms are mildly better, also complaints of mild headache, last felt normal was last night. Denies any vision loss, any double vision, dizziness, swallowing difficulty, chest pain, palpitations, shortness of breath, urinary complaints. Complaints of mild constipation, which is chronic. Denies swelling of the feet. As per patient, she has been taking Lasix. The patient is being admitted for possible TIA stroke workup. REVIEW OF SYSTEMS: As mentioned above. PAST MEDICAL HISTORY: As mentioned above. PAST SURGICAL HISTORY: History of hysterectomy, history of bunionectomy, history of back surgery. SOCIAL HISTORY: Denies smoking, alcohol abuse, or drug abuse. HOME MEDICATIONS: 1. Aspirin. 2. Nitroglycerin. 3. Hydroxyzine. 4. Lisinopril. 5. Furosemide. 6. Metformin. 7. Zofran. 8. Atorvastatin. 9. Bimatoprost. 10. Carvedilol. 11. Dorzolamide. 12. Duloxetine. 13. Gabapentin. 14. Ticagrelor. 15. Timolol. 16. Famotidine. 17. Aspirin. 18. Nitrofurantoin. 19. Oxybutynin. 20. Polyethylene Glycol. PHYSICAL EXAMINATION: VITAL SIGNS: Blood pressure 167/76, pulse 86, temperature 98.6, oxygen saturation 97%. GENERAL: The patient is lying in bed comfortably, not in any distress. Alert, awake, and oriented x3. HEENT: Conjunctivae normal. Oral mucosa dry. NECK: Supple. No JVD. No lymphadenopathy. CHEST: Normal vesicular breathing, normal kind of breathing. HEART: Sounds normal. No murmur. No gallop. No rub ABDOMEN: Soft. Benign. visceromegaly. EXTREMITIES: Negative edema in feet. No rash. No cyanosis. NEUROLOGIC: Power 4/5 right side with right facial droop. Sensation grossly intact. LABORATORY DATA: CBC unremarkable except hemoglobin 11.6, CMP unremarkable. INR 1.1. Carbon dioxide 21, BUN 24, creatinine 0.90. LFTs normal. Brain CT, diffuse ventricular prominence, consider normal pressure hydrocephalus. No acute intracranial abnormalities are otherwise demonstrated. CT brain, no acute vascular abnormalities are demonstrated. Mild atherosclerosis, diffuse ventricular prominence. IMPRESSION: 1. Acute right-sided numbness and weakness, possible transient ischemic attack versus stroke. We will admit to telemetry. The patient is on aspirin, Brilinta, will continue. Continue Neuro checks, statins, Neurology evaluation, Physical Therapy, Occupational Therapy, Speech Evaluation. Continue gentle fluids, echocardiogram. 2. History of coronary artery disease, status post percutaneous coronary intervention recently. Recommend followup outpatient with Cardiology. Currently, denies any chest pain. 3. History of obstructive sleep apnea. Continue CPAP machine. 4. History of lupus. Currently denies any joint pain. Follow outpatient with Sports Team Manager. 5. Diabetes mellitus. Continue sliding scale insulin. 6. Deep venous thrombosis and gastrointestinal prophylaxis. Plan discussed with the patient and family member and nursing staff. Job ID: [id number]
[2018-11-06] MEDS: Mometasone/Formoterol 120 PUFF INHALER INH SCH ×2 (06:52→20:07)
[2018-11-06 06:59] LABS: #Eosinphils 0.3 thou/uL (0.0-0.7); #Lymphocytes 1.2 thou/uL (1.20-3.40); #Monocytes 0.5 thou/uL (0.11-0.59); #Neutrophils 2.2 thou/uL (1.40-6.50); %Basophils 0.3 % (0.0-1.0); %Eosinophils 6.6 % (0.0-10.0); %Lymphocytes 28.8 % (21.0-51.0); %Monocytes 12.5 % (0.0-10.0); %Neutrophils 51.8 % (42.0-75.0); Hemoglobin 11.9 g/dL (12.0-16.0); Mean Corpuscular HGB CONC 32.5 g/dL (32.0-36.0); Mean Corpuscular Hemoglobin 27.4 pg (27.0-31.0); Mean Corpuscular Volume 84.1 fL (78.0-98.0); Mean Platelet Volume 9.4 fL (7.4-10.4); Platelet Count 172 thou/uL (130-400); RBC Distribution Width 11.9 % (11.5-14.5); Red Blood Cell (RBC) Count 4.37 mill/uL (4.20-5.40); White Blood Cell (WBC) Count 4.2 thou/uL (4.8-10.8)
[2018-11-06 07:18] LABS: Anion Gap 10 mmol/L (10-20); BUN (Urea Nitrogen) 16 mg/dL (9.8-20.1); Calc. Creatinine Clearance 81 mL/min (70-130); Carbon Dioxide 23 mmol/L (23-31); Cardiac Risk 2.5 (Less than 4.5); Chloride 108 mmol/L (98-107); Cholesterol 125 mg/dl (< 200 Desired); Estimated GFR-MDRD 64; Glucose 91 mg/dL (83-110); HDL Cholesterol 50 mg/dL (>60 Neg Risk); LDL Cholesterol, Calculated 64 mg/dL; Sodium 137 mmol/L (136-145); Triglycerides 55 mg/dL (Less than 150)
[2018-11-06] MEDS: Gabapentin 300 MG CAP PO SCH ×2 (08:37→21:11)
[2018-11-06] MEDS: DULoxetine 60 MG CAP PO SCH ×2 (08:37→21:11)
[2018-11-06] MEDS: Carvedilol 3.125 MG TAB PO SCH ×2 (08:37→21:12)
[2018-11-06] MEDS: Senokot S 8.6-50 MG TAB PO SCH ×2 (08:38→21:11)
[2018-11-06] MEDS: Oxybutynin ER 5 MG TAB PO SCH (08:38)
[2018-11-06] MEDS: Nitrofurantoin Monohyd/M-Cryst 100 MG CAP PO SCH (08:38)
[2018-11-06] MEDS: TICAGRELOR 90 MG TABLET PO SCH ×2 (08:39→21:20)
[2018-11-06] MEDS: Polyethylene Glycol 3350 17 GM Packet PO SCH (08:39)
[2018-11-06] MEDS: Aspirin Chewable 81 MG TAB PO SCH (08:39)
[2018-11-06] MEDS: Famotidine 20 MG TAB PO SCH ×2 (08:39→21:11)
[2018-11-06] MEDS: Enoxaparin Sodium 40 MG/0.4 ML SYRINGE SC SCH (08:40)
[2018-11-06] MEDS: prednisoLONE 1% Ophth Susp 5 ml Bottle EA EYE SCH ×2 (08:40→21:29)
--- NOTE | 2018-11-06 13:00 | MRI ---
MRI Brain WO Con: 11/06/2018 12:00 AM CLINICAL HISTORY: CVA; right-sided weakness and altered mental status. TECHNIQUE: Multiplanar, multisequence images were obtained of the brain. COMPARISON: CTA of the head with and without contrast dated November 05, [address] the brain witho ut contrast dated November 05, 2018. FINDINGS: Extra axial spaces: Normal in size and morphology for the patient's age. Hemorrhage: None. Ventricular system: Normal in size and morphology for the patient's age. Basal cisterns: Normal. Cerebral parenchyma: There is a punctate lacunar infarct involving the left thalamus. There is modera te chronic small vessel white matter ischemic change.. There is mild generalized cerebral atrophy. Midline shift: None. Cerebellum: Normal. Brainstem: Normal. OTHER: Calvarium: Normal. Vascular system: Normal. Visualized Paranasal sinuses: Clear. Visualized Orbits: The [place] lenses have been replaced Visualized upper cervical spine: Normal. Sella and skull base: Normal. IMPRESSION: 1. Acute punctate lacunar infarct involving the left thalamus. 2. Moderate chronic small vessel white matter ischemic change. 3. Mild generalized cerebral and cerebellar atrophy.
[2018-11-06] MEDS ORDERED: HumaLOG 300 UNITS/3 ML VIAL SC PRN (15:02)
[2018-11-06] MEDS ORDERED: Dextrose 50% Abboject 50 ML SYRINGE SLOW IVP PRN (15:02)
[2018-11-06] MEDS ORDERED: Dextrose 5% in Water 1,000 ML IV PRN (15:02)
--- NOTE | 2018-11-06 15:06 | PDOC.HOSPP ---
- Subjective Encounter Date: 11/06/18 Subjective: Pt seen admitted with right sided numbness and weakness , says she feels better today numbness better but still has mild weakness - Objective Vital Signs & Weight: Vital Signs (12 hours) Temp Pulse Resp BP Pulse Ox 11/06/18 11:45 97.8 F 71 16 114/65 100 11/06/18 08:00 94 L 11/06/18 07:51 97.7 F 67 16 149/68 H 98 11/06/18 06:52 66 12 11/06/18 03:58 97.4 F L 66 18 117/67 99 Weight Weight 200 lb I&O: 11/05/18 11/06/18 11/07/18 06:59 06:59 06:59 Intake Total 120 Output Total 500 Balance -500 120 Result Diagrams: 11/06/18 06:25 11/06/18 06:25 Additional Labs: Accuchecks 11/06/18 11/06/18 11/05/18 11:15 06:17 19:32 POC Glucose 151 H 96 112 H Hospitalist ROS - Review of Systems Constitutional: denies: fever Eyes: denies: pain ENT: denies: ear pain Respiratory: denies: cough Cardiovascular: denies: chest pain Genitourinary: denies: dysuria Musculoskeletal: denies: neck pain Neurological: reports: weakness, numbness - Medication Medications: Active Medications Generic Name Dose Route Start Last Admin Trade Name Freq PRN Reason Stop Dose Admin Aspirin 81 mg 11/06/18 09:00 11/06/18 08:39 Aspirin Chewable PO 81 mg DAILY [facility] Administration Atorvastatin Calcium 20 mg 11/05/18 21:00 11/05/18 20:53 Lipitor PO 20 mg HS [facility] Administration Carvedilol 3.125 mg 11/05/18 21:00 11/06/18 08:37 Coreg PO 3.125 mg BID [facility] Administration Duloxetine HCl 60 mg 11/05/18 21:00 11/06/18 08:37 Cymbalta PO 60 mg BID [facility] Administration Enoxaparin Sodium 40 mg 11/06/18 09:00 11/06/18 08:40 Lovenox SC 40 mg 0900 [facility] Administration Famotidine 20 mg 11/05/18 21:00 11/06/18 08:39 Pepcid PO 20 mg BID [facility] Administration Gabapentin 600 mg 11/05/18 21:00 11/06/18 08:37 Neurontin PO 600 mg BID [facility] Administration Mometasone Furoate/Formoterol Fumar 2 puff 11/05/18 18:30 11/06/18 06:52 Dulera 200 Mcg/5 Mcg Inhaler INH 2 puff BID-RT [facility] Administration Nitrofurantoin Macrocrystals 100 mg 11/06/18 09:00 11/06/18 08:38 Macrobid PO 100 mg DAILY [facility] Administration Oxybutynin Chloride 10 mg 11/06/18 09:00 11/06/18 08:38 Ditropan Xl PO 10 mg DAILY [facility] Administration Prednisolone 1% 0 each 11/06/18 09:00 11/06/18 08:40 Ophth Susp 5 Ml EA EYE 1 each Bottle BID [facility] Administration Polyethylene Glycol 17 gm 11/06/18 09:00 11/06/18 08:39 Miralax PO Not Given DAILY [facility] Senna/Docusate Sodium 2 tab 11/05/18 21:00 11/06/18 08:38 Senokot S PO 2 tab BID [facility] Administration Sodium Chloride 10 ml 11/05/18 17:16 11/05/18 21:02 Flush - Normal Saline IVF 10 ml PRN PRN Administration Saline Flush Ticagrelor 90 mg 11/05/18 21:00 11/06/18 08:39 Brilinta PO 90 mg BID [facility] Administration - Exam General Appearance: awake alert Eye: anicteric sclera ENT: normocephalic atraumatic Neck: supple Heart: no murmur Respiratory: CTAB Gastrointestinal: soft Extremities: no cyanosis Skin: normal turgor Neurological: facial droop Neurological - other findings: right fascial droop and right sided power 4+/5 Hosp A/P - Plan Acute CVA with right sided numbness and weakness MRI positive for acute lacunar infarct left Thalamus , Continue aspirin brilinta , statin , Neuro checks , neurology evaluation pending f/u echo , CTA neg for acute findings , Continue PT /OT/ST H/O CAD with recent placement of coronary stents continue dual antiplatelet therapy Denies chest pain MITESH continue CPAP night time DM continue monitoring blood sugars HTN continue monitoring BP H/O Lupus F/U 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
--- NOTE | 2018-11-06 16:45 | CON ---
DATE OF CONSULTATION: CHIEF COMPLAINT: Right-sided numbness. HISTORY OF PRESENT ILLNESS: The patient was recently admitted for cardiac stent placement. She went home last and then developed right-sided numbness and tingling. Wednesday, she did a lot of house work and when she got up on Wednesday morning, she found like she could not walk well and developed right-sided numbness and slurring of speech. She found her tongue was swollen. added saying she also has dryness of mouth. Therefore, they decided to come to the emergency room for possible stroke. PREVIOUS MEDICAL HISTORY: The patient has multiple medical problems. She has glaucoma, obstructive sleep apnea, lupus, coronary artery disease and there is an error in the previous medical history in the chart, which states she has diabetes and the patient denied having any diabetes. PREVIOUS SURGICAL HISTORY: Hysterectomy, history of bunionectomy, and back surgery twice for vertebral fusion. SOCIAL HISTORY: She lives with her . Does not smoke or drink alcohol. MEDICATIONS: I noted the home medications per chart and she is on aspirin 325 mg per day. FAMILY HISTORY: She has 4 brothers and 1 sister, all are healthy. Mother at 89 from heart disease. Father at 87 from heart disease. REVIEW OF SYSTEMS: PULMONARY: Negative for shortness of breath or cough. CARDIAC: Negative for chest pain, but positive for recent stent placement. GASTROINTESTINAL: Negative for nausea, vomiting, or diarrhea. NEUROLOGIC: Positive for right-sided numbness. OPHTHALMOLOGIC: Negative for any vision symptoms. DERMATOLOGIC: Negative for rash. HEMATOLOGIC: Negative for any bleeding diathesis or anemia. PHYSICAL EXAMINATION: VITAL SIGNS: Blood pressure was 149/68, temperature 97.7, pulse 67, respiratory rate 16, and O2 saturations 98. GENERAL APPEARANCE: Well-built, well-nourished lady, who is comfortable in bed. CHEST: Clear vesicular breathing. CARDIOVASCULAR: S1 and S2 heard. No murmurs. ABDOMEN: Soft and nontender. No organomegaly noted. NEUROLOGICAL: Higher intellectual function. Normal orientation to time, place, and person. Appropriate conversation. Cranial nerves II through XII normal. Normal extraocular movements. Pupils 4 mm bilaterally, reactive to light. Normal sensation of face on the left side, but abnormal on the right side with diminished sensation. No facial asymmetry, but slight nasolabial fold. Flattening was noted on the right side. Tongue midline. No atrophy noted. Normal elevation of palate. Normal hearing to finger rub bilaterally. Motor examination; bulk normal. Tone normal. Strength 5/5 throughout in iliopsoas, hamstrings, quadriceps, ankle dorsiflexion, plantar flexion, deltoid, biceps, triceps, wrist extension and flexion, finger extension and flexion bilaterally. Deep tendon reflexes 1+ throughout. Cerebellar; normal [id number] and [id number]; and sensory examination, decreased sensation in the arm and leg on the right side. LABORATORY WORKUP: White count 4.2, hemoglobin 11.9, hematocrit 36.7, and platelet count 172. Chemistries; sodium 137, potassium 4, chloride 108, bicarb 23, BUN 16, creatinine 0.86, and glucose 91. Cholesterol and lipid profile are within normal limits. IMAGING DATA: MRI of the brain was completed, which showed left thalamic infarct along with moderate chronic small vessel ischemic change and mild generalized cerebral and cerebellar atrophy. CT angiogram of the brain was negative for any vascular stenosis. IMPRESSION: The patient is a 73-year-old lady. The patient has stroke risk factor of coronary artery disease, but does not have established diabetes. 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 The patient has developed sudden onset right-sided numbness since Wednesday and came to the emergency room. At this time, she is being admitted for stroke workup. She has no family history of strokes, but family history of heart disease. Her current workup shows no metabolic abnormalities. Her CT of the head showed diffuse ventricular prominence and CT angiogram showed no evidence of vascular stenosis and her MRI of the brain showed left thalamic infarct consistent, which is resulting in her right face, arm, and leg numbness. This thalamic infarct could be more related to hypertension rather than a cardioembolic event. TREATMENT RECOMMENDATIONS: Please add Plavix to the regimen treatment regimen to prevent strokes in the future. The patient can be discharged once her stroke workup including echocardiogram has been completed. Please call Dr. Almazan if you have any further questions from tomorrow. Job ID: [id number]
[2018-11-06] MEDS: Atorvastatin Calcium 20 MG TAB PO SCH (21:11)
[2018-11-06] MEDS: Dorzolamide HCl 2% Ophth Soln 10 ml Bottle EA EYE SCH (21:29)
[2018-11-06] MEDS: Timolol 0.5% Ophth Soln 5 ml Bottle EA EYE SCH (21:30)
[2018-11-06] MEDS: BIMATOPROST EA EYE SCH (21:30)
[2018-11-07] MEDS: Mometasone/Formoterol 120 PUFF INHALER INH SCH ×2 (07:11→18:52)
[2018-11-07] MEDS: Oxybutynin ER 5 MG TAB PO SCH (08:38)
[2018-11-07] MEDS: TICAGRELOR 90 MG TABLET PO SCH ×2 (08:38→20:27)
[2018-11-07] MEDS: Senokot S 8.6-50 MG TAB PO SCH ×2 (08:38→20:28)
[2018-11-07] MEDS: Nitrofurantoin Monohyd/M-Cryst 100 MG CAP PO SCH (08:39)
[2018-11-07] MEDS: Aspirin Chewable 81 MG TAB PO SCH (08:39)
[2018-11-07] MEDS: Gabapentin 300 MG CAP PO SCH ×2 (08:39→20:27)
[2018-11-07] MEDS: Famotidine 20 MG TAB PO SCH ×2 (08:39→20:27)
[2018-11-07] MEDS: DULoxetine 60 MG CAP PO SCH ×2 (08:40→20:27)
[2018-11-07] MEDS: Polyethylene Glycol 3350 17 GM Packet PO SCH (08:40)
[2018-11-07] MEDS: Carvedilol 3.125 MG TAB PO SCH ×2 (08:40→20:28)
[2018-11-07] MEDS: Enoxaparin Sodium 40 MG/0.4 ML SYRINGE SC SCH (08:40)
[2018-11-07] MEDS: prednisoLONE 1% Ophth Susp 5 ml Bottle EA EYE SCH ×2 (08:42→20:29)
[2018-11-07] MEDS: Acetaminophen 325 MG TAB PO PRN (11:31)
--- NOTE | 2018-11-07 14:56 | PDOC.CPN ---
- Subjective Date: 11/07/18 Time: 15:01 Interval history: The pt seen and examined. No overnight events. No cardiac complaints. - Objective Allergies/Adverse Reactions: Allergies Allergy/AdvReac Type Severity Reaction Status Date / Time No Known Drug Allergies Allergy Verified 11/05/18 19:53 Visit Medications: Current Medications Acetaminophen (Tylenol) 650 mg PO Q4H PRN PRN Reason: Headache/Fever/Mild Pain (1-3) Last Admin: 11/07/18 11:31 Dose: 650 mg Aspirin (Aspirin Chewable) 81 mg PO DAILY [facility] Last Admin: 11/07/18 08:39 Dose: 81 mg Atorvastatin Calcium (Lipitor) 20 mg PO HS [facility] Last Admin: 11/06/18 21:11 Dose: 20 mg Carvedilol (Coreg) 3.125 mg PO BID [facility] Last Admin: 11/07/18 08:40 Dose: 3.125 mg Dextrose/Water (Dextrose 50%) 25 gm SLOW IVP PRN PRN PRN Reason: Hypoglycemia Duloxetine HCl (Cymbalta) 60 mg PO BID [facility] Last Admin: 11/07/18 08:40 Dose: 60 mg Enoxaparin Sodium (Lovenox) 40 mg SC 0900 [facility] Last Admin: 11/07/18 08:40 Dose: 40 mg Famotidine (Pepcid) 20 mg PO BID [facility] Last Admin: 11/07/18 08:39 Dose: 20 mg Gabapentin (Neurontin) 600 mg PO BID [facility] Last Admin: 11/07/18 08:39 Dose: 600 mg Glucagon (Glucagon) 1 mg IM PRN PRN PRN Reason: Hypoglycemia Hydroxyzine HCl (Atarax) 10 mg PO BIDPRN PRN PRN Reason: Itching Dextrose/Water (D5w) 1,000 mls @ 0 mls/hr IV .Q0M PRN PRN Reason: Hypoglycemia Insulin Human Lispro (Humalog) 0 units SC .MILD SLIDING SCALE PRN PRN Reason: Mild Correctional Scale Mometasone Furoate/Formoterol Fumar (Dulera 200 Mcg/5 Mcg Inhaler) 2 puff INH BID-RT [facility] Last Admin: 11/07/18 07:11 Dose: 2 puff Nitrofurantoin Macrocrystals (Macrobid) 100 mg PO DAILY [facility] Last Admin: 11/07/18 08:39 Dose: 100 mg Nitroglycerin (Nitrostat) 0.4 mg SL Q5MIN PRN PRN Reason: Chest Pain Ondansetron HCl (Zofran) 4 mg IVP Q6H PRN PRN Reason: Nausea/Vomiting Oxybutynin Chloride (Ditropan Xl) 10 mg PO DAILY [facility] Last Admin: 11/07/18 08:38 Dose: 10 mg Dorzolamide Hcl 2% Ophth Soln 10 Ml Bottle 0 each EA EYE HS [facility] Last Admin: 11/06/18 21:29 Dose: 1 each Timolol 0.5% Ophth (Soln 5 Ml Bottle) 0 each EA EYE HS [facility] Last Admin: 11/06/18 21:30 Dose: 1 each Prednisolone 1% Ophth Susp 5 Ml Bottle 0 each EA EYE BID [facility] Last Admin: 11/07/18 08:42 Dose: 1 each Bimatoprost [Lumigan ] Ophth Soln 2.5 Ml Bottle 0 each EA EYE HS [facility] Last Admin: 11/06/18 21:30 Dose: 1 each Polyethylene Glycol (Miralax) 17 gm PO DAILY [facility] Last Admin: 11/07/18 08:40 Dose: Not Given Senna/Docusate Sodium (Senokot S) 2 tab PO BID [facility] Last Admin: 11/07/18 08:38 Dose: Not Given Sodium Chloride (Flush - Normal Saline) 10 ml IVF PRN PRN PRN Reason: Saline Flush Last Admin: 11/05/18 21:02 Dose: 10 ml Ticagrelor (Brilinta) 90 mg PO BID [facility] Last Admin: 11/07/18 08:38 Dose: 90 mg Vital Signs & Weight: Vital Signs Temp Pulse Pulse Pulse Resp BP BP 11/07/18 11:55 97.7 F 82 16 11/07/18 11:00 85 85 103/53 L 106/80 11/07/18 09:44 94 102 H 137/83 134/87 11/07/18 08:00 11/07/18 07:20 98.4 F 70 18 11/07/18 07:11 62 14 11/07/18 03:15 98.4 F 70 16 BP Pulse Ox 11/07/18 11:55 101/63 11/07/18 11:00 11/07/18 09:44 11/07/18 08:00 94 L 11/07/18 07:20 146/81 H 94 L 11/07/18 07:11 97 11/07/18 03:15 147/75 H 95 Weight 200 lb - Physical Exam General: alert & oriented x3 HEENT: mucus membranes moist Neck: supple neck Cardiac: regular rate and rhythm, S1/S2 Lungs: clear to auscultation Skin: clear Musculoskeletal: decreased range of motion - Labs Result Diagrams: 11/06/18 06:25 11/06/18 06:25 - Telemetry Sinus rhythms and dysrhythmias: other (SR and ST with 90-130s) - Assessment/Plan Assessment/Plan: 1. Acute CVA with Rt sided numbness and weakness with positive MRI for acute lacunar infarct left Thalamus - symptoms improved; Cont ASA, Brilinta, statin, 2. CAD with s/p BMS in RCA with 90% stenosis in prox LAD and 50% in OM on 2018 - asymptomatic; Cont ASA, Brilinta, statin, Coreg 3.125mg BID, and Lisinopirl 3. HTN - stable 4. HLD - on statin 5. MITESH with CPAP night time 6. 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 Thrombocytopenia 9. Morbid Obesity MAR reviewed * From Cardiac standpoint, the pt is stable to d/c home when she can mobilize without any difficulties. * per the pt, she already has appt with Loom Operator Apprentice at [facility] next wk. Pt. seen and eval. by me. She feels that she is back to her baseline and wants to go home with home health and not rehab. I will leave this up to the admitting service. She denies any cardiac complaints. RRR,chest clear. S/P inf [place] with PTCA/stent . Awaiting CABG for disease in the LAD. No chest pain or SOB. tamika
[2018-11-07] MEDS: Atorvastatin Calcium 20 MG TAB PO SCH (20:28)
[2018-11-07] MEDS: Dorzolamide HCl 2% Ophth Soln 10 ml Bottle EA EYE SCH (20:29)
[2018-11-07] MEDS: BIMATOPROST EA EYE SCH (20:29)
[2018-11-07] MEDS: Timolol 0.5% Ophth Soln 5 ml Bottle EA EYE SCH (20:29)
--- NOTE | 2018-11-07 21:18 | PDOC.HOSPP ---
- Subjective Encounter Date: 11/07/18 Encounter Time: 11:00 Subjective: Patient seen and examined for Acute CVA. Feels better. No new focal deficits. No new complaints. No overnight events - Objective Vital Signs & Weight: Vital Signs (12 hours) Temp Pulse Pulse Pulse Resp BP BP 11/07/18 19:56 97.6 F 81 20 11/07/18 15:35 97.5 F L 70 16 11/07/18 11:55 97.7 F 82 16 11/07/18 11:00 85 85 103/53 L 106/80 11/07/18 09:44 94 102 H 137/83 134/87 BP Pulse Ox 11/07/18 19:56 106/63 94 L 11/07/18 15:35 119/71 94 L 11/07/18 11:55 101/63 11/07/18 11:00 11/07/18 09:44 Weight Weight 200 lb I&O: 11/06/18 11/07/18 11/08/18 06:59 06:59 06:59 Intake Total 660 660 Output Total 500 2450 Balance -500 -1790 660 Result Diagrams: 11/06/18 06:25 11/06/18 06:25 Additional Labs: Accuchecks 11/07/18 11/07/18 11/07/18 16:47 10:37 05:45 POC Glucose 90 131 H 123 H EKG Reviewed by me: Yes (Tele SR) Hospitalist ROS - Review of Systems Respiratory: denies: cough, dry, shortness of breath, hemoptysis, SOB with excertion, pleuritic pain, sputum, wheezing, other Cardiovascular: denies: chest pain, palpitations, orthopnea, paroxysmal noc. dyspnea, edema, light headedness, other - Medication Medications: Active Medications Generic Name Dose Route Start Last Admin Trade Name Freq PRN Reason Stop Dose Admin Acetaminophen 650 mg 11/05/18 17:16 11/07/18 11:31 Tylenol PO 650 mg Q4H PRN Administration Headache/Fever/Mild Pain (1-3) Aspirin 81 mg 11/06/18 09:00 11/07/18 08:39 Aspirin Chewable PO 81 mg DAILY [facility] Administration Atorvastatin Calcium 20 mg 11/05/18 21:00 11/07/18 20:28 Lipitor PO 20 mg HS [facility] Administration Carvedilol 3.125 mg 11/05/18 21:00 11/07/18 20:28 Coreg PO 3.125 mg BID [facility] Administration Duloxetine HCl 60 mg 11/05/18 21:00 11/07/18 20:27 Cymbalta PO 60 mg BID [facility] Administration Enoxaparin Sodium 40 mg 11/06/18 09:00 11/07/18 08:40 Lovenox SC 40 mg 0900 [facility] Administration Famotidine 20 mg 11/05/18 21:00 11/07/18 20:27 Pepcid PO 20 mg BID [facility] Administration Gabapentin 600 mg 11/05/18 21:00 11/07/18 20:27 Neurontin PO 600 mg BID [facility] Administration Mometasone Furoate/Formoterol Fumar 2 puff 11/05/18 18:30 11/07/18 18:52 Dulera 200 Mcg/5 Mcg Inhaler INH 2 puff BID-RT [facility] Administration Nitrofurantoin Macrocrystals 100 mg 11/06/18 09:00 11/07/18 08:39 Macrobid PO 100 mg DAILY [facility] Administration Oxybutynin Chloride 10 mg 11/06/18 09:00 11/07/18 08:38 Ditropan Xl PO 10 mg DAILY [facility] Administration Dorzolamide Hcl 2% 0 each 11/06/18 21:00 11/07/18 20:29 Ophth Soln 10 Ml EA EYE 1 each Bottle HS [facility] Administration Timolol 0.5% Ophth 0 each 11/06/18 21:00 11/07/18 20:29 Soln 5 Ml Bottle EA EYE 1 each HS [facility] Administration Prednisolone 1% 0 each 11/06/18 09:00 11/07/18 20:29 Ophth Susp 5 Ml EA EYE 1 each Bottle BID [facility] Administration Bimatoprost [Lumigan 0 each 11/06/18 21:00 11/07/18 20:29 ] Ophth Soln 2.5 Ml EA EYE 1 each Bottle HS [facility] Administration Polyethylene Glycol 17 gm 11/06/18 09:00 11/07/18 08:40 Miralax PO Not Given DAILY [facility] Senna/Docusate Sodium 2 tab 11/05/18 21:00 11/07/18 20:28 Senokot S PO Not Given BID [facility] Sodium Chloride 10 ml 11/05/18 17:16 11/07/18 20:30 Flush - Normal Saline IVF 10 ml PRN PRN Administration Saline Flush Ticagrelor 90 mg 11/05/18 21:00 11/07/18 20:27 Brilinta PO 90 mg BID [facility] Administration - Exam General Appearance: NAD Heart: RRR, no gallops Respiratory: CTAB, no rales Gastrointestinal: soft, non-tender, non-distended Extremities: no cyanosis, no edema Neurological: no new deficit Psychiatric: normal affect, A&O x 3 Hosp A/P - Plan DVT proph w/SCDs Acute Encephalopathy due to Acute CVA CAD s/p recent stent HTN Obesity BMI 31 HLD PLAN: Cont ASA/Brilinta - I confirmed with Dr Oviedo [facility] input Cont Statins Cont Coreg/Cymbalta
[2018-11-08] MEDS: Mometasone/Formoterol 120 PUFF INHALER INH SCH (06:17)
[2018-11-08] MEDS: Gabapentin 300 MG CAP PO SCH (08:59)
[2018-11-08] MEDS: Famotidine 20 MG TAB PO SCH (08:59)
[2018-11-08] MEDS: Aspirin Chewable 81 MG TAB PO SCH (09:00)
[2018-11-08] MEDS: Oxybutynin ER 5 MG TAB PO SCH (09:00)
[2018-11-08] MEDS: TICAGRELOR 90 MG TABLET PO SCH (09:00)
[2018-11-08] MEDS: Carvedilol 3.125 MG TAB PO SCH (09:00)
[2018-11-08] MEDS: Polyethylene Glycol 3350 17 GM Packet PO SCH (09:01)
[2018-11-08] MEDS: Senokot S 8.6-50 MG TAB PO SCH (09:01)
[2018-11-08] MEDS: DULoxetine 60 MG CAP PO SCH (09:01)
[2018-11-08] MEDS: prednisoLONE 1% Ophth Susp 5 ml Bottle EA EYE SCH (09:01)
[2018-11-08] MEDS: Nitrofurantoin Monohyd/M-Cryst 100 MG CAP PO SCH (09:01)
[2018-11-08] MEDS: Acetaminophen 325 MG TAB PO PRN (11:28)
--- NOTE | 2018-11-08 13:16 | PDOC.CPN ---
- Subjective Date: 11/08/18 Time: 13:15 Interval history: The pt seen and examined. No overnight events. No cardiac complaints. - Objective Allergies/Adverse Reactions: Allergies Allergy/AdvReac Type Severity Reaction Status Date / Time No Known Drug Allergies Allergy Verified 11/05/18 19:53 Visit Medications: Current Medications Acetaminophen (Tylenol) 650 mg PO Q4H PRN PRN Reason: Headache/Fever/Mild Pain (1-3) Last Admin: 11/08/18 11:28 Dose: 650 mg Aspirin (Aspirin Chewable) 81 mg PO DAILY [facility] Last Admin: 11/08/18 09:00 Dose: 81 mg Atorvastatin Calcium (Lipitor) 20 mg PO HS [facility] Last Admin: 11/07/18 20:28 Dose: 20 mg Carvedilol (Coreg) 3.125 mg PO BID [facility] Last Admin: 11/08/18 09:00 Dose: 3.125 mg Dextrose/Water (Dextrose 50%) 25 gm SLOW IVP PRN PRN PRN Reason: Hypoglycemia Duloxetine HCl (Cymbalta) 60 mg PO BID [facility] Last Admin: 11/08/18 09:01 Dose: 60 mg Famotidine (Pepcid) 20 mg PO BID [facility] Last Admin: 11/08/18 08:59 Dose: 20 mg Gabapentin (Neurontin) 600 mg PO BID [facility] Last Admin: 11/08/18 08:59 Dose: 600 mg Glucagon (Glucagon) 1 mg IM PRN PRN PRN Reason: Hypoglycemia Hydroxyzine HCl (Atarax) 10 mg PO BIDPRN PRN PRN Reason: Itching Dextrose/Water (D5w) 1,000 mls @ 0 mls/hr IV .Q0M PRN PRN Reason: Hypoglycemia Insulin Human Lispro (Humalog) 0 units SC .MILD SLIDING SCALE PRN PRN Reason: Mild Correctional Scale Mometasone Furoate/Formoterol Fumar (Dulera 200 Mcg/5 Mcg Inhaler) 2 puff INH BID-RT [facility] Last Admin: 11/08/18 06:17 Dose: 2 puff Nitrofurantoin Macrocrystals (Macrobid) 100 mg PO DAILY [facility] Last Admin: 11/08/18 09:01 Dose: 100 mg Nitroglycerin (Nitrostat) 0.4 mg SL Q5MIN PRN PRN Reason: Chest Pain Ondansetron HCl (Zofran) 4 mg IVP Q6H PRN PRN Reason: Nausea/Vomiting Oxybutynin Chloride (Ditropan Xl) 10 mg PO DAILY [facility] Last Admin: 11/08/18 09:00 Dose: 10 mg Dorzolamide Hcl 2% Ophth Soln 10 Ml Bottle 0 each EA EYE HS [facility] Last Admin: 11/07/18 20:29 Dose: 1 each Timolol 0.5% Ophth (Soln 5 Ml Bottle) 0 each EA EYE HS [facility] Last Admin: 11/07/18 20:29 Dose: 1 each Prednisolone 1% Ophth Susp 5 Ml Bottle 0 each EA EYE BID [facility] Last Admin: 11/08/18 09:01 Dose: 1 each Bimatoprost [Lumigan ] Ophth Soln 2.5 Ml Bottle 0 each EA EYE HS [facility] Last Admin: 11/07/18 20:29 Dose: 1 each Polyethylene Glycol (Miralax) 17 gm PO DAILY [facility] Last Admin: 11/08/18 09:01 Dose: Not Given Senna/Docusate Sodium (Senokot S) 2 tab PO BID [facility] Last Admin: 11/08/18 09:01 Dose: Not Given Sodium Chloride (Flush - Normal Saline) 10 ml IVF PRN PRN PRN Reason: Saline Flush Last Admin: 11/07/18 20:30 Dose: 10 ml Ticagrelor (Brilinta) 90 mg PO BID [facility] Last Admin: 11/08/18 09:00 Dose: 90 mg Vital Signs & Weight: Vital Signs Temp Pulse Resp BP BP BP Pulse Ox 11/08/18 11:24 98.1 F 64 16 136/63 98 11/08/18 09:33 142/96 H 136/71 11/08/18 09:00 97 11/08/18 07:44 98.2 F 66 16 141/81 H 97 11/08/18 06:17 92 16 99 11/08/18 04:09 98 F 67 20 151/83 H 97 Weight 200 lb - Physical Exam General: alert & oriented x3 Neck: supple neck Cardiac: regular rate and rhythm, S1/S2 Lungs: clear to auscultation Neuro: cranial nerve 2-12 intact Abdomen: unremarkable Skin: clear Musculoskeletal: decreased range of motion - Labs Result Diagrams: 11/06/18 06:25 11/06/18 06:25 - Telemetry Sinus rhythms and dysrhythmias: sinus rhythm - Assessment/Plan Assessment/Plan: 1. Acute CVA with Rt sided numbness and weakness with positive MRI for acute lacunar infarct left Thalamus - symptoms improved; Cont ASA, Brilinta, statin, 2. CAD with s/p PTCA/BMS in RCA with 90% stenosis in prox LAD and 50% in OM on 10/28/2018 - asymptomatic; Cont ASA, Brilinta, statin, Coreg 3.125mg BID, and Lisinopirl 3. HTN - stable 4. HLD - on statin 5. MITESH with CPAP night time 6. 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 Thrombocytopenia 9. Morbid Obesity MAR reviewed * From Cardiac standpoint, the pt is stable to d/c home when she can mobilize without any difficulties. * per the pt, she already has appt with Boat Oar Maker at [facility] next wk. Pt. seen and eval. by me. She denies any cardiac complaints. I agree with the A/ P by the IMPLANT POLISHER. Chest clear. RRR. I have informed Dr. Mena of her admission and he will decide if the CABG needs to be delayed further than previous planned. tamika
[2018-11-08 16:00] VITALS: BP 147/79; TEMP 97.9
--- NOTE | 2018-11-09 07:24 | PQF ---
MIKE DENSON MALIK MD [id number] [facility] [place] [id number] CLINICAL DOCUMENTATION CLARIFICATION FORM: POST DISCHARGE Addendum to original discharge summary date: ____ Late entry note date: __ DATE:11-09-2018 ATTN:Manuel Hubbard Please exercise your independent, professional judgment in responding to the clarification form. Clinical indicators are provided on the bottom of this form for your review Please check appropriate box(s): [ ] Encephalopathy: Type: [ ] Acute [ ] Subacute [ ] Chronic Etiology: [ ] Hypertensive [ ] Metabolic [ ] Toxic [ ] Unspecified [ ] Other (please specify) [ ] Transient Alteration of Awareness [ ] Other diagnosis please specify [ ] Unable to determine In addition, please specify: Present on Admission (POA): [ ] Yes [ ] No [ ] Unable to determine For continuity of documentation, please document condition throughout progress notes and discharge summary. Thank You. CLINICAL INDICATORS: Brain MRI 11/06 "Clinical history: altered mental status" HP 11/05 "CC:right sided numbness,tinging sensation and weakness" Consult 11/06 "MRI showed left thalamic infarct along with moderate chronic small vessel ischemic change and mild generalized cerebral and cerebellar atrophy" Consult 11/06 "This thalamis infarct could be more related to HTN rathern than a cardioembolic event" RISK FACTORS: PN 11/06 - Acute CVA PN 11/06 - DM PN 11/06 - Lupus PN 11/06 - HTN ED Notes 11/05 - 73 years old female TREATMENTS: Brain CT - Collected 11/05 Neuro check - 11/05 Neurology evaluation - 11/05 Lipitor 20mg Oral - APR 16 Carvedilol 3.125mg Oral - APR 16 (This form is maintained as a part of the permanent medical record) 2014 [employer]. All Rights Reserved [email or web address] [not provided] [email or web address]
--- NOTE | 2018-11-09 09:02 | DIS ---
DATE OF ADMISSION: 11/05/2018 DATE OF DISCHARGE: 11/08/2018 DISCHARGE DISPOSITION: Home. FOLLOWUP: 1. Follow up with primary care physician, Dr. Hafsa Peralta in 1 week. 2. Follow up with Neurology, Dr. Almazan in 2 weeks. ALLERGIES: NO KNOWN DRUG ALLERGIES . DISCHARGE MEDICATIONS: Same as admission medication. The patient will continue aspirin with Brilinta per Neurology. BRIEF HOSPITAL COURSE: The patient is a 73-year-old female with recent ST-elevation LA, requiring stent placement, currently taking aspirin and Brilinta, presented to the hospital with right-sided numbness along with weakness and transient altered mentation. She was monitored on the telemetry unit. Initial CT scan of the brain was negative for acute findings. CT angiogram of the brain was negative for hemodynamically significant stenosis. Next day, she underwent MRI of the brain that showed acute punctate lacunar infarct involving the left thalamus along with moderate chronic small vessel white matter ischemic change. She was evaluated by Neurology as well as Cardiology. Neurology recommended to continue dual-antiplatelet agent. She also underwent echocardiogram that showed ejection fraction of 45% to 50% with grade 1 of 3 diastolic dysfunction with inferior hypokinesis and mild concentric left ventricular hypertrophy. It also showed [id number] aortic regurgitation. She was evaluated by Stroke Team including physical therapy and occupational therapy. Physical Therapy recommended inpatient rehabilitation. However, the patient decided to go home with home healthcare. She was advised to seek medical attention if she changes her mind. FINAL DIAGNOSES: 1. Acute cerebrovascular accident causing transient encephalopathy. 2. Coronary artery disease, status post recent ST elevation myocardial infarction and stent placement. 3. Hypertension. 4. Hyperlipidemia. 5. Obesity with a BMI 31. 6. Obstructive sleep apnea, on CPAP. 7. Diabetes mellitus, type 2. 8. Systemic lupus erythematosus, followed by rat culturist. 9. Right-sided numbness and weakness secondary to acute cerebrovascular accident. 10. Chronic kidney disease, stage 2. PLAN: Plan was discussed with the patient in detail. She stated understanding. Job ID: [id number]
== END 2018-11-08 19:19 | disposition home health service (06) | DRG 65 ==
LOC: ERS 13:26 → 2SE 16:07
PROVIDERS: ADMIT Internal Medicine; ATTEND Internal Medicine
DX: I63.81 Other cerebral infarction due to occlusion or stenosis of small artery (principal); G81.91 Hemiplegia, unspecified affecting right dominant side; G93.49 Other encephalopathy; M32.9 Systemic lupus erythematosus, unspecified; R29.705 NIHSS score 5; G47.33 Obstructive sleep apnea (adult) (pediatric); I25.10 Atherosclerotic heart disease of native coronary artery without angina pectoris; R29.810 Facial weakness; E66.01 Morbid (severe) obesity due to excess calories; H40.9 Unspecified glaucoma; E78.5 Hyperlipidemia, unspecified; D69.6 Thrombocytopenia, unspecified; R47.81 Slurred speech; I25.2 Old myocardial infarction; Z90.710 Acquired absence of both cervix and uterus; Z95.5 Presence of coronary angioplasty implant and graft; Z79.02 Long term (current) use of antithrombotics/antiplatelets; Z79.82 Long term (current) use of aspirin; Z79.84 Long term (current) use of oral hypoglycemic drugs; Z68.31 Body mass index [BMI] 31.0-31.9, adult; I73.00 Raynaud's syndrome without gangrene; K59.09 Other constipation; N18.2 Chronic kidney disease, stage 2 (mild); I12.9 Hypertensive chronic kidney disease with stage 1 through stage 4 chronic kidney disease, or unspecified chronic kidney disease; E11.22 Type 2 diabetes mellitus with diabetic chronic kidney disease; I34.0 Nonrheumatic mitral (valve) insufficiency
CPT/HCPCS: 36415; 36416; 70450; 70496; 70498; 70551; 80048; 80061; 80076; 85025; 85610; 85730; 93005; 93306; 94664; J1650; Q9966